=== PATIENT | male | born 1950 | race Caucasian/White ===

== ENCOUNTER 2020-12-15 12:07 | Emergency (ER) | payer MEDICARE, SELFPAY ==
[2020-12-15 12:09] VITALS: BP 162/102; PULSE 68; RESP 16; TEMP 35.9; O2SAT 96; BMI 38.3
--- NOTE | 2020-12-15 12:33 | CT_ITS ---
STUDY: CT BRAIN WITHOUT CONTRAST REASON FOR EXAM: Male, 70 years old. Fell and hit back of head RADIATION DOSAGE (If Supplied By Facility): CTDIvol = ( 44.99 ) mGy, DLP = ( 846.73 ) mGycm TECHNIQUE: Transaxial CT imaging of the brain was performed without administration of intravenous contrast material. Individualized dose optimization techniques were used for this CT. COMPARISON: No relevant priors. FINDINGS: Normal soft tissue structures. Normal calvarium. There is mild cerebral atrophy with widening of the extra-axial spaces and ventricular dilatation. Normal white matter tracts of the cerebral hemispheres. Normal basal ganglia and thalami. Normal brainstem. Normal cerebellum. There is no intracranial hemorrhage. There are no findings of an acute ischemic infarction. Mucosal thickening along the inferior aspects of both maxillary sinuses. CT/Brain/Head without Contrast IMPRESSION: Chronic involutional changes of the brain. Electronically Signed: Kavon Stearns MD at 13:23 EST , Service support ,
--- NOTE | 2020-12-15 12:34 | ED.DCSUM_ITS ---
- ER Visit Summary Date of Service: 12/15/20 Chief Complaint: Fell on [employer] complaining of mid upper back pain History of Present Illness: The patient is a 70 M Struve hypertension and gout. On no blood thinners. Patient is visiting family he is from [place] they live in this area. He said he slipped on an [employer] driveway fell back hit the back of his head. He denies any LOC, dizziness or headache. He denies any nausea or vomiting. He is complaining of mid upper back pain. Denies any chest or abdominal pain. He said prior to the fall he felt fine. Physical Examination: Older male no acute distress vital signs stable afebrile pulse ox 96% on room air no signs of hypoxia. HEENT exam pupils round reactive light extra motions are intact. No facial trauma. Posterior scalp mid area has got a very superficial 1 cm laceration which does not need to be repaired. T here is no bleeding. There is no hematoma. Is nontender. C-spine nontender. Trachea midline. Normal range of motion. Lungs clear to auscultation bilaterally. Heart regular rhythm rate about 70 no murmur. Chest wall nontender. Abdomen soft nontender normal bowel sounds no peritoneal signs. Pelvic girdle intact. Patient moving all 4 extremities. Neurovascularly intact. No deformities. Equal symmetrical 5-5 galvanometer assembler strength. Dorsi plantarflexion intact. Normal range of motion. Spine cervical, thoracic and lumbar spine are nontender. He complains of mid thoracic pain but there is no reproducible tenderness there is no bruising or signs of trauma to his back. Neurologically is awake and alert. No focal motor or sensory deficits. GCS of 15. He is answering questions and following commands. He is acting normally. Test Results: Thoracic spine AP and lateral films read both by myself and the radiologist shows chronic degenerative changes but no acute fracture. CT brain done without contrast read by the radiologist reviewed by me shows no acute abnormality. No intracranial bleed. No skull fracture. Portable 1 view chest x-ray shows no obvious rib fractures or pneumothorax interpreted by me and read by the radiologist. Repeat exam patient is doing well at 2:16 PM. He did want something else for pain she will be given subcu injection of morphine and p.o. Zofran. Again he does not have reproducible tenderness on his back. His ex- and he are still friends and I spoke to her on the phone she lives in [place]. His daughter will come and pick him up. Patient is doing well he is neurologically intact. He is awake and alert. He is showing no signs currently of any significant concussion. Emergency Department Course and Treatment: Older male fall with head injury and upper back pain. Benign exam. Normal neurologic exam. Due to his age and reported impact I would not obtain a CAT scan of his brain and a thoracic spine x-ray. He will be given Tylenol for pain. Treatment Plan: Motrin and limited [place] for pain. 10 no refill. Follow-up with local physician if not improving or return if worse. Head injury instructions. Disposition: Discharge Impression: Acute fall on [place] Acute closed head injury Upper back pain This note was generated with [employer] dictation software. It may contain incorrect words, spelling, and punctuation that were not noted in review of the chart prior to signing
--- NOTE | 2020-12-15 12:45 | RAD_ITS ---
STUDY: X-RAY - THORACIC SPINE REASON FOR EXAM: Male, 70 years old. Fall and upper to mid back pain TECHNIQUE: 2 view(s) of the thoracic spine were obtained. COMPARISON: None. FINDINGS: There is an increase in the normal thoracic kyphosis. There is no substantial scoliosis. There is demineralization of the thoracic spine with endplate spondylosis. There is multilevel disc space narrowing of the thoracic spine. The soft tissue structures are unremarkable. RAD/Thoracic Spine 2 Views IMPRESSION: Increased thoracic kyphosis. Multilevel disc space narrowing and spondylosis. Electronically Signed: Kavon Stearns MD at 13:18 EST , Service support ,
[2020-12-15] MEDS: Acetaminophen 500 MG Tablet 1000 MG PO (13:13)
[2020-12-15 14:33] VITALS: BP 169/83; PULSE 59; RESP 14; O2SAT 98
--- NOTE | 2020-12-15 14:37 | ED.DEP ---
ED Disposition - Plan for ED Patient: Disposition: Home or Assisted Living Instructions: ED Back Sprain/Strain, ED Head Injury (Adult) Prescriptions: Hydrocodone Bitart/Apap 5-325 [Shawnee 5MG-325MG] 1 - 2 tab PO Q6H PRN PRN 3 Days #10 tab PRN Reason: Pain Prescription Printed Referrals: MEHDI JORDAN [Other] - As Needed Max Fajardo MD [STAFF PHYSICIAN] - 3-5 Days if not improving Additional Instructions: Limited [place]nee which is a pain medication as needed for your back pain. Also may use limited Motrin. Return if severe headache, confused or intractable vomiting. Your CAT scan your brain and the chest x-ray and back x-rays were unremarkable. You have chronic arthritis in your back but there is no acute broken bones that was seen. Follow-up with a local physician if not improving. Ice to your scalp and ice and heat to your upper back.
[2020-12-15] MEDS: Ondansetron ODT 4 MG Tablet PO (14:42)
[2020-12-15] MEDS: morphine 8 MG/ML Syringe SC (14:42)
--- NOTE | 2020-12-15 14:55 | RAD_ITS ---
STUDY: X-RAY CHEST REASON FOR EXAM: Male, 70 years old. Fall and pain TECHNIQUE: Single AP portable view of the chest. COMPARISON: None. FINDINGS: The lungs are clear and expanded. Stable scattered bilateral calcified granulomas. There is no demonstrated pleural abnormality. There is borderline cardiomegaly. Normal mediastinum and sana. Normal visualized pulmonary arteries. Normal visualized aortic arch and descending thoracic aorta. There are diffuse degenerative changes of the visualized thoracic spine. Normal visualized ribs, clavicles, and shoulders. There is no demonstrated abnormality of the visualized soft tissue structures of the upper abdomen. RAD/Chest 1 View (Portable) IMPRESSION: No acute abnormality is seen. Electronically Signed: Kavon Stearns MD at 15:13 EST , Service support ,
[2020-12-15 15:22] VITALS: BP 135/105; PULSE 56; RESP 14; O2SAT 98
== END 2020-12-15 15:23 | disposition home or self-care (01) ==
PROVIDERS: Emergency Provider Emergency Medicine
DX: M54.6 Pain in thoracic spine (principal); S01.01XA Laceration without foreign body of scalp, initial encounter; I10 Essential (primary) hypertension; Z79.899 Other long term (current) drug therapy; W00.0XXA Fall on same level due to ice and snow, initial encounter; Y93.01 Activity, walking, marching and hiking; Y92.008 Other place in unspecified non-institutional (private) residence as the place of occurrence of the external cause; Y99.8 Other external cause status
CPT/HCPCS: 70450; 71045; 72070; 96372; 99283

== ENCOUNTER → 2022-08-26 | Outpatient (CLI) | payer MEDICARE, SELFPAY ==
--- NOTE | 2022-08-26 17:01 | CT_ITS ---
INDICATION: Osteoarthritis, preoperative planning EXAMINATION: CT BONE - CT Lower Extremity W/O Contrast Injection TECHNIQUE: Helically acquired images were obtained of the left hip, left knee, left ankle. 2-D reformats were performed by the technologist. A radiation dose optimization technique was used for this scan. IV Contrast dosage and agent: None. COMPARISON: None. FINDINGS: SOFT TISSUES: Left knee joint effusion.. No radiopaque foreign body. BONES/JOINTS: No acute fracture of the left hip. Left hip joint space well maintained. No destructive bony lesion. 7 mm osteochondral fracture medial tibial plateau with bone on bone contact with the medial femoral condyle, extensive subchondral sclerosis. Small bone fragments in the intracondylar notch. Small posterior patellar osteophytes. No acute fractures of the ankle. Degenerative changes with subchondral geodes at the anterior tibia and anterior talus. 9 space is anatomically maintained. Small osseous fragments adjacent to the medial malleolus, likely from prior trauma. No ankle joint effusion. CT/Extremity Lower without Contra IMPRESSION: Unremarkable left hip. Moderately severe degenerative changes of the left knee with 7 mm osteochondral fracture at the medial tibial plateau. Degenerative changes of the ankle with possible posttraumatic changes at the medial malleolus.. Electronically Signed: Cecil Stock MD at 21:58 EDT ,
== END | disposition home or self-care (01) ==
LOC: CT 16:59
PROVIDERS: Visit Provider Orthopaedic Surgery
DX: M17.12 Unilateral primary osteoarthritis, left knee (principal)
CPT/HCPCS: 73700

== ENCOUNTER → 2022-10-12 | Outpatient (CLI) | payer MEDICARE, SELFPAY ==
[2022-10-12 18:04] LABS: Absolute Lymphocyte Count 2.44 X10^3/uL (0.83-4.51); Absolute Neutrophil Count 7.7 X10^3/uL (2.0-7.7); Basophil# 0.05 X10^3/uL; Basophil% 0.4 % (0-1); Eosinophils% 1.8 % (0-5); Hematocrit 46.7 % (40-54); Hemoglobin 15.5 g/dL (13.0-16.5); Lymphocyte # 2.44 X10^3/ul (0.83-4.51); Lymphocyte % 21.7 % (19-41); Mean Corp Hgb Conc 33.2 g/dL (32-36); Mean Corpuscular Hgb 30.5 pg (27.0-32.0); Mean Corpuscular Volume 91.9 fL (80-94); Monocyte# 0.81 X10^3/uL; Monocyte% 7.2 % (0-10); NRBC Flagged by Analyzer 0 % (0-5); Neutrophil % 68.5 % (47-70); Platelet Count 342 K/mm3 (150-450); RBC Distribution Width CV 13.8 % (11.6-14.6); RBC Distribution Width SD 46.6 fl (35.1-43.9); Red Blood Count 5.08 M/mm3 (4.6-6.2); White Blood Count 11.2 K/mm3 (4.4-11.0)
[2022-10-12 19:03] LABS: ALB/GLOB Ratio 1.3 RATIO (0.9-2.4); AST(SGOT) 17 U/L (15-37); Alanine Aminotransfer ALT/SGPT 29 U/L (16-61); Albumin, Serum 3.8 g/dL (3.2-5.0); Alkaline Phosphatase 73 U/L (45-117); Anion Gap 8 (5-15); BUN 14 mg/dL (7-18); BUN/Creat Ratio 13.7 RATIO (10-20); Calcium,Total 8.7 mg/dL (8.5-10.1); Chloride 109 mmol/L (98-107); Cholesterol 184 mg/dL (200); Creatinine, Serum 1.02 mg/dL (0.70-1.30); EST Glomerular Filtration Rate 76 mL/min (>60); Est Glom Filt Rate - Afr Amer 92 mL/min (>60); Globulin 2.9 g/dL (2.2-4.2); Glucose 78 mg/dL (74-106); High Density Lipoprotein 48 mg/dL; Potassium 4.4 mmol/L (3.5-5.1); Protein, Total 6.7 g/dL (6.4-8.2); Sodium Level 141 mmol/L (136-145); Thyroid Stim Hormone (TSH) 1.43 uIU/mL (0.358-3.74); Triglycerides 128 mg/dL; Very Low Density Lipoprotein 26 mg/dL (5-40)
== END | disposition home or self-care (01) ==
LOC: MFPLAB 14:56
PROVIDERS: PCP Family Medicine; Referring Provider Family Medicine; Visit Provider Family Medicine
DX: I10 Essential (primary) hypertension (principal)
CPT/HCPCS: 36415; 80053; 80061; 84443; 85025

== ENCOUNTER 2022-11-01 07:54 | Observation (INO) | payer MEDICARE, SELFPAY ==
[2022-10-20 17:12] LABS: Magnesium 2.3 mg/dL (1.6-2.6)
[2022-10-20 17:46] LABS: Hemoglobin A1c 5.5 % (3.8-5.6)
[2022-10-31] VITALS (13 sets, daily range): BP systolic 101–151; BP diastolic 59–81; PULSE 47–60; RESP 7–27; TEMP 35.5–36.6; O2SAT 99–100; BMI 32.5
--- NOTE | 2022-10-31 | KNEE_PTH ---
PATIENT: SIDNEY POLLARD LOC: MS3 U#:[id number] AGE/SX: 72/M ROOM: NC317 RE11/01/[address]: Dr. Mynor Kirkpatrick MD : 1950 BED: 1 DIS: 11/03/2022 SPEC #: [id number] RECD: 10/31/22 16:28 STATUS: JUAN A REQ #: [id number] LEANN: 10/31/22 00:[address]: Mynor Kirkpatrick DEPT: SURGICAL PATHOLOGY RECD BY: David Vazquez ENTERED: 11/01/22 09:09 SP TYPE: TOTAL KNEE OTHR DR: MD Dr. Michael Abreu MD Dr. Paige Pierce, MD Tissues: Knee, NOS Procedures: Decalcification bone/plaque Surgery Specimen Level IV HEADER OPERATION: ERAS, total knee replacement PRE-OP DIAGNOSIS: Unilateral posttraumatic osteoarthritis left knee TISSUE SUBMITTED: Bone and tissue left knee MICROSCOPIC DIAGNOSIS Bone and soft tissue, left knee, total knee replacement/resection: Pieces of bone with degenerative osteoarthritic changes. Fibroadipose tissue, fibroconnective tissue and reactive synovial tissue. EMANUEL:julio c 11/04/2022 MICROSCOPIC DESCRIPTION Slides are reviewed. GROSS DESCRIPTION Received is one container designated bone and soft tissue left knee. The specimen consists of multiple fragments of wynn-yellow bone measuring in aggregate 10 x 10 x 4 cm. Also in the specimen container are multiple fragments of yellow-white soft tissue measuring in aggregate 6 x 7 x 2.5 cm. A number of bony fragments contain articular surfaces consistent with tibial plateau and femoral condyle and displaying prominent osteophyte formation, eburnation, and bone erosion. Chemical Equipment Repairer sections are submitted in three cassettes as follows: 1 - soft tissue, 2 & 3 - bone after decalcification. / EMANUEL:julio c 11/01/2022 TC: CPT: 51211, 24380
[2022-10-31] MEDS: Acetaminophen 500 MG Tablet 1000 MG PO ×2 (11:30→21:33)
[2022-10-31] MEDS: Magnesium 1 GM over 15 mins IV (11:31)
[2022-10-31] MEDS: Gabapentin 600 MG Tablet PO (11:31)
[2022-10-31] MEDS: Lactated Ringers 1,000 ML 15 ML IV (11:35)
[2022-10-31 12:00] LABS: Bedside Glucose 107 mg/dL (74-106)
[2022-10-31] MEDS: Cefazolin 2 GM in 0.9% Normal Saline 100 ML IV (12:47)
--- NOTE | 2022-10-31 13:11 | CHAPLAIN ---
Type of Pastoral Visit _x__ Initial Visit ___ Follow-up Visit ___ On-call Visit ___ General Patient Visit ___ Spiritual Assessment ___ Family Conference ___ Bereavement ___ Rapid Response ___ Code Blue ___ Other (describe below) Pastoral Care Referral From _x__ Patient ___ Family ___ Nurse ___ Physician ___ Curbing Stonecutter ___ Ab Initio Etl Developer ___ Other (describe below) Sacrament/Intervention _x__ Active listening ___ Anointing ___ Gnosticist ___ Bereavement ___ Communion ___ Kimberlyn exploration ___ ___ Life review _x__ Prayer ___ Reconciliation ___ Sacrament of Sick _x__ Supportive presence ___ Wedding ___ Other (describe below) Pastoral Comments patient had left a message for pre-surgery support and prayer; met with patient and daughter prior to surgery; pt admits to fear about surgery; pt has not been ill for most of his life; spent time to listen, be present, offer care, and prayer; offer of support to daughter as well
[2022-10-31] MEDS: TXA 1000mg in NS100 100ml (IVPB at Incision) 660 MG IV (13:12)
--- NOTE | 2022-10-31 14:33 | OP.PCM_ITS ---
Problems Associated Problem List Diagnoses (1) Post-traumatic osteoarthritis of left knee: Operative Report Date of Procedure: 10/31/22 Preoperative and post op diagnosis: Left knee severe post traumatic arthritis Title of procedure : Left total knee replacement, press fit, PS Kelly triathlon 1 Surgeon: Mynor Kirkpatrick MD General Warehouse Associate: Mattie Alvarez PA-C Anesthesia: Spinal, adductor canal nerve block Anesthesiologist:Dr. Garcia / SHALINI Special medications: Ancef 2 gm tranexamic acid Indications for surgery: Patient is a [72 ]-year-old [male] with a history of knee arthritis, posttraumatic, history PCL insufficiency appropriately treated and failed conservative measures and wished to proceed with total knee replacement. Patient was cleared for surgery by the medical doctor and has been evaluated by the anesthesia staff Findings: Intraoperative findings showed severe arthritis of the knee and PCL insufficiency.. Patient underwent knee replacement using Kim triathlon press-fit total knee components. Size [5] femur, size [6] tibia, size [6 -13 PS] X3 tibial polyethylene insert, knee was nicely balanced. Patella tracked well. Patient underwent standard wound closure in layers. Vicryl and strata fix sutures utilized. real estate assistant, physician stores assistant, was utilized throughout the entire procedure. They were vital in helping with patient positioning, holding of retractors, exposing the tissues adequately for safe completion of the procedure including cutting of the bone, helping flat spring assembler appropriate alignment and sizing of the components, implantation of the components, as well as wound closure, bandage application, and safe patient transfer. Without acute care certified nursing assistant, physician stores assistant, surgical time would have been significantly increased, and surgical outcome could have been less optimal. Press-fit knee replacement macro preoperative diagnosis: Left knee severe primary osteoarthritis Description of procedure: The patient was taken to the OR, transferred to the OR table. They were given a spinal anesthetic. Ancef was given IV preoperatively. Tranexamic acid was given IV preoperatively. Well-padded tourniquet was applied to the upper thigh of the operative leg. Nonoperative leg had a PRISCILA hose and SCD on throughout. Operative limb was prepped padded and draped in usual orthopedic sterile fashion for the procedure. We began by injecting the pain relieving solution in the anterior superior aspect of the knee region. The limb was exsanguinated, and the tourniquet was applied to 300 mmHg. Made a midline incision through skin, subcutaneous tissue, bringing down us on the extensor mechanism. Medial parapatellar arthrotomy was carried out. Straw-colored joint fluid was evacuated. We raised a sleeve of tissue off the upper medial tibia. Resected some of the infrapatellar fat pad. We remove degenerative medial and lateral meniscus. Removed bone spurs from about the joint. We removed tissue off the anterior aspect of the distal femur. Patella was translated laterally and/or everted as needed throughout the procedure. ACL was resected. PCL was chronically deficient. Collateral ligaments were preserved. Physician placed the retractors and stores assistant held retractors protecting above ligaments throughout the procedure. Cartilage removed off the distal femur and upper tibia consistent with the cutting guides, premade custom. We resected off of the distal femur. Next cutting block was applied to the front of the femur. Appropriate predetermined degree of external rotation . We sized off that block and decided on the appropriate size femur. 4-in-1 cutting block was applied to the distal femur and held in place with 4 pins. General Warehouse Associate again held retractors to protect the soft tissues while surgeon performed anterior, posterior, and chamfer cuts. Bony fragments were removed. PCL retractor was placed and collateral ligament protectors placed by the surgeon, held by the assistance. Tibial premade cutting guide with external alignment guide was utilized under standard technique going down the shaft of the tibia, to the base of the second metatarsal. Appropriate posterior slope was built in. General Warehouse Associate help flat spring assembler alignment. Cutting block was held in place with 3 pins. Again checked the external alignment. Tibial cut carried out with a saw while the stores assistant held retractors protecting the soft tissues about the anterior, medial, lateral, and posterior knee. Bone fragment removed. We then sized off the upper tibia with the help of the stores assistant. We then checked flexion extension gaps finding them to be adequate and equal. Next the distal femoral trial was applied. Tibial tray was allowed to freefloat with a 13 mm insert. Knee was flexed and extended an external alignment guide is utilized. Due to PCL insufficiency, distal femoral intercondylar resection carried out. Bony fragment removed. Tibial trial was pinned in place. Drill holes were placed into the distal femoral trial and it was removed. Punch was used on the upper tibial component and that was removed. The sclerotic bone was softened with a sharp pin. Bone spurs removed from the posterior medial and posterior lateral aspect of the femur while the stores assistant lifted up on the distal femur and exposed each compartment. Patella was everted and visualized. No full-thickness cartilage loss. Some bony spurs were resected. Bleeding was controlled at the back of the knee with the bovey. Posterior knee soft tissues were carefully injected with pain relieving solution. Knee was thoroughly irrigated by the stores assistant while surgeon fashioned a bone plug that was placed in the femoral canal hole. The bony surfaces cleaned and dried. Tibia, femur, press-fit into position. General Warehouse Associate held retractors exposing the bony surfaces of the tibia and femur wh ich were hammered in position. A trial insert applied to the tibia. The final PS insert was placed on the tibial tray seated down fully. We thoroughly irrigated and debrided the knee. Bleeding controlled with the Bovie. Knee was again thoroughly irrigated. Patella noted to track nicely. We repaired the arthrotomy with a combination of #1 Vicryl and #2 strata fix. We did a mid layer of 1 Vicryl and #1 strata fix running. We then did inverted 2-0 vicryl . We then applied Steri-Strips over skin prep. Mepilex dressing applied. PRISCILA hose and SCDs applied. Patient was awoken from their anesthetic, transferred back to their own bed and recovery room in satisfactory condition. Second dose of IV Tranexamic acid was given while closing wound. Patient was admitted, appropriate IV antibiotic to be utilized as well as medication for DVT prevention. Hopeful discharge in 1-2 days. Hospitalist service and Physical therapy will be consulted. This note was generated with [employer] dictation software. It may contain incorrect words, spelling, and punctuation that were not noted in checking the note before signing. Postoperative diagnosis:
[2022-10-31] MEDS: TXA 1000mg in NS100 100ml (IVPB at Closure) 660 MG IV (14:39)
[2022-10-31] MEDS: Lactated Ringers 1,000 ML 999 ML IV (15:30)
--- NOTE | 2022-10-31 15:40 | RAD_ITS ---
INDICATION: post op -- AP and Lateral xray of operative knee in PACU EXAMINATION/TECHNIQUE: X-RAY - LEFT XR Knee 1 or 2 Views 2 VIEWS COMPARISON: None. FINDINGS: 2 views left knee show postoperative appearance of the knee with anatomic alignment of the knee prosthesis. Overlying skin nick anteriorly. Subcutaneous emphysema in the operative site and in the joint space. RAD/Knee 1 or 2 Views IMPRESSION: Status post left knee replacement. Electronically Signed: Cecil Stock MD at 16:09 EST ,
--- NOTE | 2022-10-31 16:44 | PCM.PN.HOSP ---
Subjective Subjective Patient with ongoing significant left knee pain secondary to severe posttraumatic arthritis following with Dr. Mynor Kirkpatrick. Patient presented for planned left total knee replacement. Currently status post surgical intervention with additionally block with sensation improving although left lower extremity still slightly decreased sensation but able to move both lower extremities without issue and denies any current pain. Discussed patient's history and specifically requested if he is still drinking alcohol and he currently states that he has been clean but cannot give an exact timeline. He does go into mild diatribe about the different levels of alcoholism and is not sure exactly which one he may be. He does report that he has had some mild memory issues recently has been started on medication for depression. Patient denies fevers, chills, nausea, emesis, abdominal pain, chest pain or dyspnea. Objective Data Objective Data Vital Signs: Vital Signs Temp Pulse Resp BP Pulse Ox O2 Del Method O2 Flow Rate 96 F L 55 L 21 H 137/78 H 100 Nasal Cannula 4 10/31/22 16:30 10/31/22 16:30 10/31/22 16:30 10/31/22 16:30 10/31/22 16:30 10/31/22 16:30 10/31/22 16:30 Oxygen Flow Rate (L/min) 4 Oxygen Delivery Method Nasal Cannula Weight: 233 lb 11.04 oz Body Mass Index (BMI) 32.5 Intake & Output: Intake and Output for Last 24 Hours 10/29/22 10/30/22 10/31/22 23:59 23:59 23:59 Intake Total 1432 / 1432 Balance 1432 / 1432 Lab / Micro Data Labs: Laboratory Results - last 24 hr 10/31/22 11:05: POC Glucose 107 H Micro: Microbiology 10/20/22 16:19 Swab (Method) Nasal Screen MRSA/MSSA - Final Radiography Diagnostic Testing: Radiology Impression Knee X-Ray 10/31/22 15:40 IMPRESSION: Status post left knee replacement. Electronically Signed: Cecil Stock MD at 16:09 EST , Physical Exam Narrative Physical Examination: General: Awake, alert, oriented x 3 including to self, place and recent events, remains cooperative, laying in the PACU bed, no acute distress, denies pain. Skin: Normal color, normal turgor, no icterus, no cyanosis except for recent left total knee replacement with dressings in place, no drainage. HEENT: AT/NC, EOMI, PERRLA, mildly dry MM, no carotid bruits or JVD noted. Lungs: Diminished, greater bases, appropriate effort, no rales, ronchi or wheezing. Heart: Regular rate and rhythm; no gallop, rub audible. Abdomen: Soft, obese, NTTP, ND, distant mildly decreased BS, difficult assess HSM given habitus. Extremities: No cyanosis, clubbing, or edema, sensation returning, still mildly decreased sensation left lower extremity but moving both, peripheral pulses intact. Neurological: Patient awake, alert, oriented as noted, cognitive function appears intact although unclear exact baseline with patient reporting memory issues possibly related to depression; pupils equally reactive to light and accommodation, cranial nerves II-XII grossly normal, moving all 4 extremities, sensation mildly decreased on the left lower extremity but improving, strength moderately to severely decreased given recent OR. Psychiatric: Affect appears very cheerful, normal, no acute evidence of depressive or anxiety feelings. Assessment & Plan Assessment/Plan (1) Post-traumatic osteoarthritis of left knee: PLAN: Plan The patient is a 72 y/o M w/ PMHx: Hx EtOH abuse, Hx Polysubstance abuse (crack/cocaine use reported in chart), Anxiety and Depression, Chart reported neurocognitive disorder (possibly EtOH related, but unclear), HTN, Chronic back pain, OA who presents to the [facility] on 10/31/22 with history of going low knee osteoarthritic pain despite interventions for planned left total knee replacement. #1. Severe Osteoarthritis, Left Knee: Failed conservative therapies and treatments, admitted per Dr. Kirkpatrick for planned L TKR, post-operative pain management, bowel regimen, DVT Prophylaxis, PT/OT/CM per Orthopedic surgery discretion. #2. History of alcohol abuse: From discussions some concern about possible ongoing usage although patient reports that he is not been drinking and has been sober but cannot be exact about the years and specifically goes into mild diatribe about the level of alcoholism and that he never really was obsessed with alcohol. If any concerns arise may initiate CIWA and add mag and Phos levels. #3. History of polysubstance abuse: Per chart patient is a former substance abuse user which she did admit to following discussions, previously reported crack and cocaine in the chart, reports being clean. #4. Chart reported neurocognitive disorder: Possibly related with his alcohol abuse history, reports he has been having memory issues but his specific etiology is his underlying depression which she reports he is being treated for. Encouraged continued follow-up for further assessment as needed pending response to treatment of his depression. #5. Hypertension: Continue home regimen including atenolol, PRN hydralazine. #6. Anxiety and depression: We will continue low-dose sertraline regimen, encourage continued follow-up and certainly has room to move on this medication. We will continue also patient as needed hydroxyzine regimen. #7. DVT prophylaxis: SCDs, chemoprophylaxis per surgery discretion especially given recent MAR. Admission Evaluation Time spent evaluating chart, patient history, patient evaluation, care planning and discussion with specialists: 50 minutes. Charges/Coding Visit Charges Inpatient E&M: 61651 Subs Hosp L3
[2022-10-31] MEDS: Lactated Ringers 1,000 ML 125 ML IV (18:03)
[2022-10-31] MEDS: Cefazolin 1 GM/50 ML BAG IV (21:31)
[2022-10-31] MEDS: Senna/Docusate Sodium 1 Tablet 2 TABLET PO (21:34)
[2022-10-31] MEDS: hydrOXYzine 10 MG Tablet PO (21:42)
[2022-10-31] MEDS: Zolpidem Tartrate 5 MG Tablet PO (22:44)
[2022-11-01] MEDS: Lactated Ringers 1,000 ML 125 ML IV (03:55)
[2022-11-01 03:57] VITALS: BP 139/78; PULSE 60; RESP 18; TEMP 36.6; O2SAT 100
[2022-11-01] MEDS: Cefazolin 1 GM/50 ML BAG IV (04:14)
[2022-11-01] MEDS: oxyCODONE 5 MG Tablet PO ×3 (04:14→21:18)
[2022-11-01] MEDS: Acetaminophen 500 MG Tablet 1000 MG PO ×3 (05:57→21:19)
[2022-11-01 07:21] LABS: Hematocrit 41.9 % (40-54); Hemoglobin 13.7 g/dL (13.0-16.5); Mean Corp Hgb Conc 32.7 g/dL (32-36); Mean Corpuscular Hgb 30.6 pg (27.0-32.0); Mean Corpuscular Volume 93.7 fL (80-94); Mean Platelet Vol. 8.7 fl (6.2-12.0); Platelet Count 245 K/mm3 (150-450); RBC Distribution Width CV 13.1 % (11.6-14.6); RBC Distribution Width SD 45.1 fl (35.1-43.9); Red Blood Count 4.47 M/mm3 (4.6-6.2); White Blood Count 12.3 K/mm3 (4.4-11.0)
--- NOTE | 2022-11-01 07:40 | PN.ORTHO_ITS ---
Subjective Subjective Patient sitting at bedside with aide at his side. Patient states his knee has been very painful, and have very difficult time with any weightbearing ambulation. Patient is very concerned that he will not be able to go home as he does live by himself and will not be able to ambulate through his home. Patient denies chest pain, shortness of breath, calf pain, nausea vomiting. Patient has no other complaints at this time. Objective Data Objective Data Vital Signs: Vital Signs Temp Pulse Resp BP Pulse Ox O2 Del Method O2 Flow Rate 97.9 F 60 18 139/78 H 100 Nasal Cannula 2 11/01/22 03:57 11/01/22 03:57 11/01/22 03:57 11/01/22 03:57 11/01/22 03:57 11/01/22 03:57 11/01/22 03:57 Oxygen Flow Rate (L/min) 2 Oxygen Delivery Method Nasal Cannula Weight: 106 kg Body Mass Index (BMI) 32.5 Intake & Output: Intake and Output for Last 24 Hours 10/30/22 10/31/22 11/01/22 23:59 23:59 23:59 Intake Total 1579.5 / 2179.5 2150 / 2150 Output Total 600 / 600 Balance 1579.5 / 1979.5 1550 / 1550 Lab / Micro Data Result Diagrams: 11/01/22 06:35 11/01/22 06:35 Labs: Laboratory Results - last 24 hr 10/31/22 11:05: POC Glucose 107 H 11/01/22 06:35: WBC 12.3 H, RBC 4.47 L, Hgb 13.7, Hct 41.9, MCV 93.7, MCH 30.6, MCHC 32.7, RDW Std Deviation 45.1 H, RDW Coeff of Sarah 13.1, Plt Count 245, MPV 8.7 Micro: Microbiology 10/20/22 16:19 Swab (Method) Nasal Screen MRSA/MSSA - Final Radiography Diagnostic Testing: Radiology Impression Knee X-Ray 10/31/22 15:40 IMPRESSION: Status post left knee replacement. Electronically Signed: Cecil Stock MD at 16:09 EST , Physical Exam Narrative Exam, I found patient sitting comfortably in the recliner at bedside. Patient's left leg elevated. The dressing was clean dry intact. Patient had no calf tenderness. No pain with plantar flexion dorsiflexion of the foot and ankle. Patient with this treatment painful with any motion of the knee. He was lacking approximately 10 degrees full extension. Flexion to approximately 65 degrees with severe pain. Neurovascular is otherwise intact. Patient was in no respiratory distress, speaking in full sentences. Full range of motion of the upper extremities without limitations. Const alert and oriented x3 General Appearance: cooperative HEENT normocephalic Eyes PERRL Resp normal respiratory effort Effort and Inspection: able to speak in complete sentences Extremity normal capillary refill Skin no rashes or lesions noted Neuro CN's II-XII intact bilaterally Psych mental status grossly normal and affect normal Assessment & Plan Assessment/Plan (1) Status post total left knee replacement not using cement: PLAN: 1. Continue all pain medications as prescribed 2. Continue aspirin 81 mg 1 p.o. every 12 hours x30 days for postop DVT prophylaxis 3. Encourage incentive spirometry 4. Continue ice to left knee 5. Continue physical therapy weight-bear as tolerated with walker 6. Check with insurance for possible placement to [facility] 4th floor rehab or an F
[2022-11-01 07:45] LABS: Anion Gap 6 (5-15); BUN 15 mg/dL (7-18); BUN/Creat Ratio 15.6 RATIO (10-20); Calcium,Total 8.2 mg/dL (8.5-10.1); Chloride 107 mmol/L (98-107); Creatinine, Serum 0.96 mg/dL (0.70-1.30); EST Glomerular Filtration Rate 82 mL/min (>60); Est Glom Filt Rate - Afr Amer 99 mL/min (>60); Estimated Creatinine Clearance 71.82 ml/min; Glucose 98 mg/dL (74-106); Sodium Level 139 mmol/L (136-145)
[2022-11-01 08:10] VITALS: O2SAT 98
[2022-11-01 08:20] VITALS: BP 109/61; PULSE 65; RESP 18; TEMP 37; O2SAT 98
[2022-11-01] MEDS: Aspirin 81 MG TAB.CHEW PO ×2 (08:24→17:09)
[2022-11-01] MEDS: Senna/Docusate Sodium 1 Tablet 2 TABLET PO (08:24)
[2022-11-01] MEDS: Sertraline 50 MG Tablet PO (08:25)
[2022-11-01] MEDS: Atenolol 25 MG Tablet PO (08:25)
--- NOTE | 2022-11-01 10:03 | CASEMGMT ---
Social Work SW in to meet with pt following update from that pt requesting placement at [facility] Rehab Unit. SW introduced self and role at the hospital. Pt agreeable to discussing discharge planning. A list of SNF/RU providers including quality and resource use data and consistent with the patient?s preferred geographic region, medical needs, and insurance network from the [employer] Guide was offered. Pt declined the list, stated [facility] is preferred provider. Pt discussed anxiety regarding being able to care for self and plans pt previously attempted to make for care after surgery and how they fell through. SW spoke with pt regarding mental health counseling and pt informed has seen a counselor recently and does not need resources. Pt shared on meds for anxiety. Pt continued to express anxiety, SW encouraged pt to utilize coping skills learned in counseling. Pt agreeable. SUJATHA sent referral for pt to Belen Mast at [facility] Rehab Unit. Belen received and will review with Dr. Hackett. PLAN: [facility], pending acceptance and precert? LUIS Mahmood?
--- NOTE | 2022-11-01 11:53 | CHAPLAIN ---
Type of Pastoral Visit ___ Initial Visit _x__ Follow-up Visit ___ On-call Visit ___ General Patient Visit ___ Spiritual Assessment ___ Family Conference ___ Bereavement ___ Rapid Response ___ Code Blue ___ Other (describe below) Pastoral Care Referral From _x__ Patient ___ Family ___ Nurse ___ Physician ___ Uptwister Tender ___ Chemical Operations Specialist ___ Other (describe below) Sacrament/Intervention _x__ Active listening ___ Anointing ___ Oriental Orthodox ___ Bereavement ___ Communion ___ Kimberlyn exploration ___ ___ Life review _x__ Prayer ___ Reconciliation ___ Sacrament of Sick _x__ Supportive presence ___ Wedding ___ Other (describe below) Pastoral Comments follow up visit as requested by the patient; pt had surgery and today states I shouldn't have done this. I'm so anxious. It is numb. I don't know... as he moves around in the bed; questioned patient if any reasons why he makes these statements and feels this way and pt is unable to give any reasons; pt states that he has depression and why did I do this?; pt says that he has done the 12 step program and knows the steps to do; pt plan is to be admitted for in patient rehab; pt thanks mop worker for coming but has difficulty focusing his thoughts; pt said he told family not to come for visit; pt had bag of things to do or read but he said he was not interested in that right now; pt did welcome prayer for his peace and for recovery; pt was expressive of gratitude for visit and prayer; pt would welcome future supportive visits if indeed he does inpatient rehab here
[2022-11-01] MEDS: hydrOXYzine 10 MG Tablet PO (13:25)
[2022-11-01 13:29] VITALS: BP 144/73; PULSE 73; RESP 18; TEMP 37.7; O2SAT 94
--- NOTE | 2022-11-01 14:10 | CASEMGMT ---
Social Work SW received call from pt's Daughter, Arabella. Arabella had questions regarding pt discharge plan. Arabella wanting to provide information regarding not being able to assist pt with therapy/rehab and continuing line of questions. SUJATHA informed that referral had been placed to [facility] and is awaiting review by . SUJATHA offered extensive education on insurance auth and possibilities were pt could be approved or denied. Arabella understand of information provided. SUJATHA reassured Arabella that when determination is made SUJATHA will call with update. PLAN: [facility], pending acceptance and precert LUIS Mahmood
--- NOTE | 2022-11-01 14:25 | PN.HOSP_ITS ---
Subjective Subjective Somewhat anxious today, overall reports pain is very reasonable when he is sitting down but worsened significantly with movement which is to be expected. Denied other complaints today Objective Data Objective Data Vital Signs: Vital Signs Temp Pulse Resp BP Pulse Ox O2 Del Method O2 Flow Rate 99.8 F H 73 18 144/73 H 94 Room Air 2 11/01/22 13:29 11/01/22 13:29 11/01/22 13:29 11/01/22 13:29 11/01/22 13:29 11/01/22 13:29 11/01/22 08:10 Oxygen Flow Rate (L/min) 2 Oxygen Delivery Method Room Air Weight: 106 kg Body Mass Index (BMI) 32.5 Intake & Output: Intake and Output for Last 24 Hours 10/30/22 10/31/22 11/01/22 23:59 23:59 23:59 Intake Total 1579.5 / 2179.5 3150 / 3150 Output Total 600 / 600 Balance 1579.5 / 1979.5 2550 / 2550 Lab / Micro Data Result Diagrams: 11/01/22 06:35 11/01/22 06:35 Labs: Laboratory Results - last 24 hr 11/01/22 06:35: WBC 12.3 H, RBC 4.47 L, Hgb 13.7, Hct 41.9, MCV 93.7, MCH 30.6, MCHC 32.7, RDW Std Deviation 45.1 H, RDW Coeff of Sarah 13.1, Plt Count 245, MPV 8.7 11/01/22 06:35: Sodium 139, Potassium 4.0, Chloride 107, Carbon Dioxide 26.0, A nion Gap 6, BUN 15, Creatinine 0.96, Estim Creat Clear Calc 71.82, Est GFR (MDRD) Af Amer 99, Est GFR (MDRD) Non-Af 82, BUN/Creatinine Ratio 15.6, Glucose 98, Calcium 8.2 L Micro: Microbiology 10/20/22 16:19 Swab (Method) Nasal Screen MRSA/MSSA - Final Radiography Diagnostic Testing: Radiology Impression Knee X-Ray 10/31/22 15:40 IMPRESSION: Status post left knee replacement. Electronically Signed: Cecil Stock MD at 16:09 EST , Physical Exam Const alert Constitutional Narrative: Oriented HEENT normocephalic and head/scalp atraumatic Eyes Eyes Narrative: EOM grossly intact, anicteric Neck supple Resp normal respiratory effort and clear to auscultation bilaterally Cardio regular rate and regular rhythm GI soft to palpation, non-tender and non-distended Extremity Extremity Narrative: No edema appreciated Neuro moves all extremities Neuro Narrative: No overt focal deficits appreciated Psych Psych Narrative: Frequently mumbles, appears somewhat anxious Assessment & Plan Assessment/Plan (1) Status post total left knee replacement not using cement: PLAN: Plan #Status post total left knee replacement Performed 10/31/[address] Kirkpatrick Aspirin 81 mg every 12 for 30 days postop PT/OT assessed Patient like to go to rehab here Awaiting insurance Auth #Anxiety/hx alcohol abuse/hx polysubstance abuse/neurocognitive disorder/anxiety and depression Called earlier but he was increasingly anxious and did not respond to hydroxyzine Given unclear alcohol history Ativan x1 was ordered Possible benefit though unclear Was found to be retaining 1200 cc of urine which may have been part of his symptoms Will start CIWA every 4 hours without coverage at this time with low threshold to start coverage Also given urinary retention will get UA and will also obtain UDS Continue home sertraline Will schedule melatonin tonight #Urinary retention UA, may need repeat bladder scans if not voiding #Hypertension Continue atenolol #DVT ppx: Aspirin, SCDs Rhonda Castanon MD Charges/Coding Visit Charges Inpatient E&M: 69868 Subs Hosp L2
--- NOTE | 2022-11-01 15:29 | CASEMGMT ---
Addendum entered by Tammy Rose 11/01/22 15:46: SW in to inform pt that Rehab is unable to accept. A list of SNF providers including quality and resource use data and consistent with the patient?s preferred geographic region, medical needs, and insurance network [facility] was offered once again. Pt agreeable to reviewing and stated [facility] TCU would be preference if cannot go to . SW informed there is a possibility of a bed being open tomorrow but no guarantee. Pt staying hopefully can go to TCU. SW attempted to get another choice from pt. Pt stated possibly [facility] but would like to confer with daughter before making that decision. PLAN: TCU, pending acceptance and precert LUIS Mahmood Original Note: Social work SW received message from [facility] at Rehab Unit. Dr. Hackett has not accepted pt at Rehab Unit. Belen shared a bed will likely be open at [facility] tomorrow. SW asked [facility] to hold bed for this pt. Belen agreeable. Belen will know if the bed will open tomorrow morning. In meantime SW will get alternative choices for community SNF placement from pt. PLAN: TCU vs. community SNF LUIS Mahmood
[2022-11-01 17:06] VITALS: BP 152/79; PULSE 74; RESP 18; TEMP 37.9; O2SAT 97
[2022-11-01] MEDS: LORazepam 0.5 MG Tablet PO (17:09)
[2022-11-01 19:58] VITALS: BP 141/74; PULSE 73; RESP 18; TEMP 37.2; O2SAT 99
--- NOTE | 2022-11-01 20:22 | NURSING ---
Pt would like to have Von Buckley added to his contact list. Pt would like Von to be able to receive updates. This RN talked to Von and he had several concerns that he would like addressed. He would like pt to go to rehab. States he feels that it is not safe for pt to go home with his daughter since the pt's daughter works. Also, if pt needs to be straight cathed again Von is requesting that a 10 belarusian cath be used. Von's phone number is [phone]. This RN will call registration and have the list updated.
[2022-11-01] MEDS: 0.9% NaCl Peripheral Flush Adult/Peds IV (21:17)
[2022-11-01] MEDS: MELATONIN 10 MG TABLET PO (21:17)
[2022-11-02] VITALS (7 sets, daily range): BP systolic 114–138; BP diastolic 56–77; PULSE 62–90; RESP 16–18; TEMP 36.4–37.9; O2SAT 95–99
[2022-11-02] MEDS: oxyCODONE 5 MG Tablet PO ×3 (02:57→19:53)
[2022-11-02 04:02] LABS: Amphetamine Urine VISTA NEGATIVE (<1000 ng/mL); Barbiturate Urine VISTA NEGATIVE (< 200 ng/mL); Benzodiazepine Urine VISTA POSITIVE (< 200 ng/mL); Cocaine Urine VISTA NEGATIVE (< 300 ng/mL); Ecstacy Urine VISTA NEGATIVE (< 500 ng/mL); Methadone Urine VISTA NEGATIVE (< 300 ng/mL); PCP Urine VISTA NEGATIVE (< 25 ng/mL); THC Urine VISTA NEGATIVE (< 50 ng/mL); Vista UDS pH Range 4
[2022-11-02 04:11] LABS: Bacteria 0 SEEN /hpf (None Seen); Mucous, Urine 0 SEEN /hpf (<or=2+); Squamous Epithelial Cells - UA 0 SEEN /hpf (0-5); White Blood Cells 0 SEEN /hpf (0-5)
[2022-11-02 04:12] LABS: Glucose, Dipstick Normal (Normal); Ketone-Dipstick Negative (Negative); Leukocyte Esterase-Dipstick Negative /ul (Negative); Nitrite-Dipstick Negative (Negative); Occult Blood-Urine 10 /ul (Negative); Protein-Dipstick 15 mg/dl (Negative); Specific Gravity, Urine 1.015 (1.002-1.030); Urine Bilirubin Dipstick Negative (Negative); Urine Urobilinogen Normal (Normal)
[2022-11-02 04:26] LABS: Color, Urine Yellow (Yellow); Urine Clarity Clear (Clear)
[2022-11-02 04:27] LABS: Red Blood Cells-Urine 0-5 SEEN /hpf (0-5)
[2022-11-02] MEDS: Acetaminophen 500 MG Tablet 1000 MG PO ×2 (05:10→14:18)
[2022-11-02 06:09] LABS: Hematocrit 40.2 % (40-54); Hemoglobin 13.2 g/dL (13.0-16.5); Mean Corp Hgb Conc 32.8 g/dL (32-36); Mean Corpuscular Hgb 30.3 pg (27.0-32.0); Mean Corpuscular Volume 92.4 fL (80-94); Platelet Count 241 K/mm3 (150-450); Red Blood Count 4.35 M/mm3 (4.6-6.2); White Blood Count 18.1 K/mm3 (4.4-11.0)
[2022-11-02 06:40] LABS: Anion Gap 4 (5-15); BUN 17 mg/dL (7-18); Calcium,Total 8.2 mg/dL (8.5-10.1); Chloride 109 mmol/L (98-107); Creatinine, Serum 0.94 mg/dL (0.70-1.30); EST Glomerular Filtration Rate 83 mL/min (>60); Est Glom Filt Rate - Afr Amer 101 mL/min (>60); Estimated Creatinine Clearance 73.35 ml/min; Glucose 100 mg/dL (74-106); Sodium Level 137 mmol/L (136-145)
--- NOTE | 2022-11-02 07:30 | PN.ORTHO_ITS ---
Subjective Subjective Patient is postop day 2 following a left total knee arthroplasty pain has been well controlled in the left knee. He states physical therapy is difficult. He has been having some urinary retention. He was able to urinate some in the middle of the night but they had to straight cath him. He currently denies chest pain shortness of breath dizziness or calf pain. No adverse events overnight. He is hoping for discharge to residential facility for rehabilitation. He denies a history of DVT or pulmonary embolism. Objective Data Objective Data Inspection of left knee is with clean dry waterproof dressing without active drainage erythema warmth or signs of infection. Negative Piotr bilaterally without signs of DVT. Patient is able to actively plantar and dorsiflex bilateral ankles against resistance. Sensation intact light touch. Pedal pulses present equal bilaterally. Neurovascularly intact. Vital Signs: Vital Signs Temp Pulse Resp BP Pulse Ox O2 Del Method O2 Flow Rate 98.3 F 62 18 114/56 L 95 Room Air 2 11/02/22 02:56 11/02/22 02:56 11/02/22 02:56 11/02/22 02:56 11/02/22 02:56 11/02/22 02:56 11/01/22 08:10 Oxygen Flow Rate (L/min) 2 Oxygen Delivery Method Room Air Weight: 106 kg Body Mass Index (BMI) 32.5 Intake & Output: Intake and Output for Last 24 Hours 10/31/22 11/01/22 11/02/22 23:59 23:59 23:59 Intake Total 1579.5 / 2179.5 3150 / 3150 Output Total 1800 / 1800 1000 / 1000 Balance 1579.5 / 1979.5 1350 / 1350 -1000 / -1000 Lab / Micro Data Result Diagrams: 11/02/22 05:08 11/02/22 05:08 Labs: Laboratory Results - last 24 hr 11/01/22 02:40: Urine Opiates Screen POSITIVE H, Urine Methadone Screen NEGATIVE, Ur Barbiturates Screen NEGATIVE, Ur Phencyclidine Scrn NEGATIVE, Ur Amphetamines Screen NEGATIVE, MDMA (Ecstasy) Screen NEGATIVE, U Benzodiazepines Scrn POSITIVE H, Urine Cocaine Screen NEGATIVE, U Cannabinoids Screen NEGATIVE, Ur Drug Screen Comment 11/01/22 06:35: Sodium 139, Potassium 4.0, Chloride 107, Carbon Dioxide 26.0, Anion Gap 6, BUN 15, Creatinine 0.96, Estim Creat Clear Calc 71.82, Est GFR (MDRD) Af Amer 99, Est GFR (MDRD) Non-Af 82, BUN/Creatinine Ratio 15.6, Glucose 98, Calcium 8.2 L 11/02/22 03:40: Urine Color Yellow, Urine Clarity Clear, Urine pH 5.0, Ur Specific [place] 1.015, Urine Protein 15 H, Urine Glucose (UA) Normal, Urine Ketones Negative, Urine Occult Blood 10 H, Urine Nitrite Negative, Urine Bilirubin Negative, Urine Urobilinogen Normal, Ur Leukocyte Esterase Negative, Urine RBC 0-5 SEEN, Urine WBC 0 SEEN, Ur Squamous Epith Cells 0 SEEN, Urine Bacteria 0 SEEN, Urine Mucus 0 SEEN 11/02/22 05:08: WBC 18.1 H, RBC 4.35 L, Hgb 13.2, Hct 40.2, MCV 92.4, MCH 30.3, MCHC 32.8, RDW Std Deviation 44.0 H, RDW Coeff of Sarah 13.0, Plt Count 241, MPV 9.0 11/02/22 05:08: Sodium 137, Potassium 4.0, Chloride 109 H, Carbon Dioxide 24.0, Anion Gap 4 L, BUN 17, Creatinine 0.94, Estim Creat Clear Calc 73.35, Est GFR (MDRD) Af Amer 101, Est GFR (MDRD) Non-Af 83, BUN/Creatinine Ratio 18.0, Glucose 100, Calcium 8.2 L Micro: Microbiology 10/20/22 16:19 Swab (Method) Nasal Screen MRSA/MSSA - Final Assessment & Plan Assessment/Plan (1) Status post total left knee replacement not using cement: PLAN: -Status post left total knee arthroplasty postoperative day #2 -Case and findings were discussed and reviewed at length with Dr. Mynor Kirkpatrick -Continue oxycodone and Tylenol as needed for pain attempting to minimize the use of narcotics in the perioperative period -DVT prophylaxis bilateral teds SCDs and aspirin 81 mg twice daily x1 month postoperative -Leukocytosis currently afebrile without acute signs of orthopedic infection or evidence of urinary tract infection. Continue work-up and medical management per hospitalist group. Possibly resulting from atelectasis versus acute stress response continue to monitor -Encourage incentive spirometry -Continue discharge planning with case management anticipate discharge to residential facility possibly today with insurance approval -Continue postoperative medical management per hospitalist group -Orthopedically stable okay for discharge when cleared medically having adequate pain control and doing well with physical therapy we will plan for follow-up 2 weeks reassessment with x-rays and staple removal
--- NOTE | 2022-11-02 07:39 | PN.HOSP_ITS ---
Subjective Subjective Has continued to have problems with urination including urinary retention and had a Boswell placed. He is very frustrated today as he cannot go to TCU and found this upsetting. Said he feels like he is depressed because of this episode, discussed his medication and he was out of clinic just his sertraline. He denies thoughts of hurting himself or anyone else, and just reiterated his frustration and not being able to go to TCU. Objective Data Objective Data Vital Signs: Vital Signs Temp Pulse Resp BP Pulse Ox O2 Del Method O2 Flow Rate 98.3 F 62 18 114/56 L 95 Room Air 2 11/02/22 02:56 11/02/22 02:56 11/02/22 02:56 11/02/22 02:56 11/02/22 02:56 11/02/22 02:56 11/01/22 08:10 Oxygen Flow Rate (L/min) 2 Oxygen Delivery Method Room Air Weight: 106 kg Body Mass Index (BMI) 32.5 Intake & Output: Intake and Output for Last 24 Hours 10/31/22 11/01/22 11/02/22 23:59 23:59 23:59 Intake Total 1579.5 / 2179.5 3150 / 3150 Output Total 1800 / 1800 1000 / 1000 Balance 1579.5 / 1979.5 1350 / 1350 -1000 / -1000 Lab / Micro Data Result Diagrams: 11/02/22 05:08 11/02/22 05:08 Labs: Laboratory Results - last 24 hr 11/01/22 02:40: Urine Opiates Screen POSITIVE H, Urine Methadone Screen NEGATIVE, Ur Barbiturates Screen NEGATIVE, Ur Phencyclidine Scrn NEGATIVE, Ur Amphetamines Screen NEGATIVE, MDMA (Ecstasy) Screen NEGATIVE, U Benzodiazepines Scrn POSITIVE H, Urine Cocaine Screen NEGATIVE, U Cannabinoids Screen NEGATIVE, Ur Drug Screen Comment 11/01/22 06:35: Sodium 139, Potassium 4.0, Chloride 107, Carbon Dioxide 26.0, Anion Gap 6, BUN 15, Creatinine 0.96, Estim Creat Clear Calc 71.82, Est GFR ( RD) Af Amer 99, Est GFR (MDRD) Non-Af 82, BUN/Creatinine Ratio 15.6, Glucose 98, Calcium 8.2 L 11/02/22 03:40: Urine Color Yellow, Urine Clarity Clear, Urine pH 5.0, Ur Specific Coleman 1.015, Urine Protein 15 H, Urine Glucose (UA) Normal, Urine Ketones Negative, Urine Occult Blood 10 H, Urine Nitrite Negative, Urine Bilirubin Negative, Urine Urobilinogen Normal, Ur Leukocyte Esterase Negative, Urine RBC 0-5 SEEN, Urine WBC 0 SEEN, Ur Squamous Epith Cells 0 SEEN, Urine Bacteria 0 SEEN, Urine Mucus 0 SEEN 11/02/22 05:08: WBC 18.1 H, RBC 4.35 L, Hgb 13.2, Hct 40.2, MCV 92.4, MCH 30.3, MCHC 32.8, RDW Std Deviation 44.0 H, RDW Coeff of Sarah 13.0, Plt Count 241, MPV 9.0 11/02/22 05:08: Sodium 137, Potassium 4.0, Chloride 109 H, Carbon Dioxide 24.0, Anion Gap 4 L, BUN 17, Creatinine 0.94, Estim Creat Clear Calc 73.35, Est GFR (MDRD) Af Amer 101, Est GFR (MDRD) Non-Af 83, BUN/Creatinine Ratio 18.0, Glucose 100, Calcium 8.2 L Micro: Microbiology 10/20/22 16:19 Swab (Method) Nasal Screen MRSA/MSSA - Final Physical Exam Const alert Constitutional Narrative: Appears upset HEENT normocephalic and head/scalp atraumatic Eyes Eyes Narrative: EOM grossly intact, anicteric Neck supple Resp normal respiratory effort Cardio regular rate and regular rhythm GI soft to palpation, non-tender and non-distended Extremity Extremity Narrative: No edema appreciated Neuro moves all extremities Neuro Narrative: No overt focal deficits appreciated Psych Psych Narrative: Appears anxious and upset Assessment & Plan Assessment/Plan (1) Status post total left knee replacement not using cement: PLAN: Plan #Status post total left knee replacement Performed 10/31/[address] Kirkpatrick Aspirin 81 mg twice daily for 30 days postop with outpatient Ortho follow-up and x-rays in 2 weeks PT/OT assessed Patient like to go to rehab here Awaiting insurance Auth 11/02: [facility] does not have beds, pursuing other options. Management per surgery #Urinary retention Unclear etiology continue to retain and now has Boswell placed Started on Flomax Will need to follow-up with urology in 1 week #Leukocytosis Likely reactive, no signs or symptoms of infection Was having urinary retention but UA benign Not tachycardic, not tachypneic, not hypotensive No signs, symptoms, localizing source of potential infection, leukocytosis may still be explained he has reactive plan monitor closely for signs/symptoms of infection #Anxiety/hx alcohol abuse/hx polysubstance abuse/neurocognitive disorder/anxiety and depression Called earlier but he was increasingly anxious and did not respond to hydroxyzine Given unclear alcohol history Ativan x1 was ordered Possible benefit though unclear Was found to be retaining 1200 cc of urine which may have been part of his sy mptoms Will start CIWA every 4 hours without coverage at this time with low threshold to start coverage Also given urinary retention will get UA and will also obtain UDS Continue home sertraline Will schedule melatonin tonight 11/02: Did not require any further Ativan, discussed his psychiatric medication and he was adamant against changing this. Denied any thoughts of hurting himself or others. We will need to continue to follow-up with his outpatient psychiatrist on discharge #Hypertension Continue atenolol #DVT ppx: Aspirin, SCDs Rhonda Castanon MD Charges/Coding Visit Charges Inpatient E&M: 07372 Subs Hosp L2
[2022-11-02] MEDS: Aspirin 81 MG TAB.CHEW PO ×2 (09:20→17:20)
[2022-11-02] MEDS: Atenolol 25 MG Tablet PO (09:20)
[2022-11-02] MEDS: Senna/Docusate Sodium 1 Tablet 2 TABLET PO (09:20)
[2022-11-02] MEDS: Sertraline 50 MG Tablet PO (09:20)
--- NOTE | 2022-11-02 09:41 | CASEMGMT ---
Social work SW checked with Belen at TCU. Belen shared no beds open at this time and now next anticipated discharge is 11/06. SW in to inform pt that TCU cannot accept at this time. SW reviewed SNF list with pt. Pt voiced feelings of anxiety and stress. SW offered support, validated feelings and reminded pt that SNF in community would be alternative option and pt does not have to go home alone if insurance will cover SNF in community. Pt voiced anxiety with concern over finances and the hospital bill as he waits to hear back for acceptance. Pt shared next preference would be [facility] and confirmed approval for SW to send referral to [facility]. SW sent referral to [facility] at this time. SW called pt daughter, Arabella, to inform of new plan. Arabella asking many questions about the process once again. SW offered support and education. Arabella voiced understanding the plan is now for pt to go to [facility] pending acceptance and insurance authorization. PLAN: [facility], pending acceptance and precert. LUIS Mahmood
--- NOTE | 2022-11-02 10:37 | CASEMGMT ---
Social Work SW received message from [facility]. [facility] is able to accept pt. Precert to be started this morning. SW in to notify pt of acceptance. Explained prior insurance auth needs to be obtained. Pt voiced understanding. PLAN: [facility], pending precert. LUIS Mahmood
--- NOTE | 2022-11-02 12:06 | NURSING ---
Pt rates pain 8/10 declined pain meds. he is anxious and nurse offered Hydroxyzine for anxiety but he states I am all right.
[2022-11-02] MEDS: hydrOXYzine 10 MG Tablet PO (14:25)
--- NOTE | 2022-11-02 15:27 | NURSING ---
Dr Castanon texted that pt is begging the nurse to take the leggett out, she said no for now and will give it some thought. Each time it is removed it will go in harder and caused more trauma.
--- NOTE | 2022-11-02 15:52 | NURSING ---
Pt was notified of the Dr's decision about the leggett cathether.
[2022-11-02] MEDS: Tamsulosin HCl 0.4 MG Capsule PO (17:20)
[2022-11-03] MEDS: oxyCODONE 5 MG Tablet PO (01:03)
[2022-11-03 02:00] VITALS: BP 138/79; PULSE 76; RESP 18; TEMP 37.2; O2SAT 97
[2022-11-03 06:18] LABS: Hemoglobin 12.9 g/dL (13.0-16.5); Mean Corp Hgb Conc 33.9 g/dL (32-36); Mean Corpuscular Hgb 31.2 pg (27.0-32.0); Mean Platelet Vol. 8.9 fl (6.2-12.0); Platelet Count 247 K/mm3 (150-450); RBC Distribution Width CV 13.2 % (11.6-14.6); Red Blood Count 4.13 M/mm3 (4.6-6.2); White Blood Count 14.6 K/mm3 (4.4-11.0)
[2022-11-03] MEDS: Acetaminophen 500 MG Tablet 1000 MG PO ×2 (06:31→13:53)
[2022-11-03 07:00] VITALS: O2SAT 97
[2022-11-03 07:11] LABS: ALB/GLOB Ratio 0.7 RATIO (0.9-2.4); AST(SGOT) 4 U/L (15-37); Alanine Aminotransfer ALT/SGPT 12 U/L (16-61); Albumin, Serum 2.3 g/dL (3.2-5.0); Alkaline Phosphatase 49 U/L (45-117); Anion Gap 6 (5-15); BUN 15 mg/dL (7-18); BUN/Creat Ratio 16.3 RATIO (10-20); Calcium,Total 8.4 mg/dL (8.5-10.1); Chloride 106 mmol/L (98-107); Creatinine, Serum 0.92 mg/dL (0.70-1.30); EST Glomerular Filtration Rate 86 mL/min (>60); Est Glom Filt Rate - Afr Amer 104 mL/min (>60); Estimated Creatinine Clearance 74.94 ml/min; Globulin 3.4 g/dL (2.2-4.2); Glucose 98 mg/dL (74-106); Potassium 4.1 mmol/L (3.5-5.1); Protein, Total 5.7 g/dL (6.4-8.2); Sodium Level 137 mmol/L (136-145)
[2022-11-03 08:34] VITALS: BP 140/81; PULSE 73; RESP 18; TEMP 36.7; O2SAT 98
[2022-11-03 08:37] VITALS: PULSE 80
[2022-11-03] MEDS: Sertraline 50 MG Tablet PO (08:50)
[2022-11-03] MEDS: Aspirin 81 MG TAB.CHEW PO (08:50)
[2022-11-03] MEDS: Atenolol 25 MG Tablet PO (08:50)
[2022-11-03] MEDS: Senna/Docusate Sodium 1 Tablet 2 TABLET PO (08:50)
--- NOTE | 2022-11-03 08:57 | PCM.PN.HOSP ---
Subjective Subjective Doing well, no complaints other than wanting catheter out Objective Data Objective Data Vital Signs: Vital Signs Temp Pulse Resp BP Pulse Ox O2 Del Method O2 Flow Rate 98.1 F 80 18 140/81 H 98 Room Air 2 11/03/22 08:34 11/03/22 08:37 11/03/22 08:34 11/03/22 08:34 11/03/22 08:34 11/03/22 08:37 11/01/22 08:10 Oxygen Flow Rate (L/min) 2 Oxygen Delivery Method Room Air Weight: 106 kg Body Mass Index (BMI) 32.5 Intake & Output: Intake and Output for Last 24 Hours 11/01/22 11/02/22 11/03/22 23:59 23:59 23:59 Intake Total 3150 / 3150 500 / 800 800 / 800 Output Total 1800 / 1800 1815 / 2215 950 / 950 Balance 1350 / 1350 -1315 / -1415 -150 / -150 Lab / Micro Data Result Diagrams: 11/03/22 05:41 11/03/22 05:41 Labs: Laboratory Results - last 24 hr 11/03/22 05:41: WBC 14.6 H, RBC 4.13 L, Hgb 12.9 L, Hct 38.0 L, MCV 92.0, MCH 31.2, MCHC 33.9, RDW Std Deviation 45.0 H, RDW Coeff of Sarah 13.2, Plt Count 247, MPV 8.9 11/03/22 05:41: Sodium 137, Potassium 4.1, Chloride 106, Carbon Dioxide 25.0, Anion Gap 6, BUN 15, Creatinine 0.92, Estim Creat Clear Calc 74.94, Est GFR (MDRD) Af Amer 104, Est GFR (MDRD) Non-Af 86, BUN/Creatinine Ratio 16.3, Glucose 98, Calcium 8.4 L, Total Bilirubin 0.50, AST 4 L, ALT 12 L, Alkaline Phosphatase 49, Total Protein 5.7 L, Albumin 2.3 L, Globulin 3.4, Albumin/Globulin Ratio 0.7 L Micro: Microbiology 10/20/22 16:19 Swab (Method) Nasal Screen MRSA/MSSA - Final Physical Exam Const alert and no apparent distress HEENT normocephalic and head/scalp atraumatic Eyes Eyes Narrative: EOM grossly intact, anicteric Neck supple Resp normal respiratory effort Cardio regular rate and regular rhythm GI soft to palpation, non-tender and non-distended Extremity Extremity Narrative: No edema appreciated Neuro moves all extremities Neuro Narrative: No overt focal deficits appreciated Psych Psych Narrative: Appears anxious and upset Assessment & Plan Assessment/Plan (1) Status post total left knee replacement not using cement: PLAN: Plan #Status post total left knee replacement Performed 10/31/[address] Kirkpatrick Aspirin 81 mg twice daily for 30 days postop with outpatient Ortho follow-up and x-rays in 2 weeks PT/OT assessed Patient like to go to rehab here Awaiting insurance Auth 11/02: TCU does not have beds, pursuing other options. Management per surgery #Urinary retention Unclear etiology continue to retain and now has Richardson placed Started on Flomax 11/03/22: RECOMMEND CONTINUING FLOMAX RICHARDSON REMOVED PER PT REQUEST AFTER DISCUSSING RISKS AND BENEFITS WOULD RECOMMEND POST VOID BLADDER SCAN TID FOR 24-48 HOURS TO VERIFY VOIDING, VERBALIZED HIS UNDERSTANDING THAT IT WILL NEED REPLACED IF NOT VOIDING FOLLOW UP WITH UROLOGY IN THE OFFICE- CALL TO SCHEDULE AN APPOINTMENT #Leukocytosis Likely reactive, no signs or symptoms of infection Was having urinary retention but UA benign Not tachycardic, not tachypneic, not hypotensive No signs, symptoms, localizing source of potential infection, leukocytosis may still be explained he has reactive plan monitor closely for signs/symptoms of infection 11/03: WBC down trended to 14.6 without intervention, does point to it being reactive in nature, no indication to begin antibiotics #Anxiety/hx alcohol abuse/hx polysubstance abuse/neurocognitive disorder/anxiety and depression Called earlier but he was increasingly anxious and did not respond to hydroxyzine Given unclear alcohol history Ativan x1 was ordered Possible benefit though unclear Was found to be retaining 1200 cc of urine which may have been part of his symptoms Will start CIWA every 4 hours without coverage at this time with low threshold to start coverage Also given urinary retention will get UA and will also obtain UDS Continue home sertraline Will schedule melatonin tonight 11/02: Did not require any further Ativan, discussed his psychiatric medication and he was adamant against changing this. Denied any thoughts of hurting himself or others. We will need to continue to follow-up with his outpatient psychiatrist on discharge #Hypertension Continue atenolol #DVT ppx: Aspirin, SCDs Rhonda Castanon, MD Charges/Coding Visit Charges Inpatient E&M: 58779 Subs Hosp L2
--- NOTE | 2022-11-03 11:43 | CASEMGMT ---
Addendum entered by Tammy Rose 11/03/22 13:19: SW inquired if pt would like daughter, Arabella, updated on plan. Pt declined, stated upset with daughter for not allowing pt to come to her home. Pt stated I will call her when I get to the [facility]. Original Note: Social work SW received notice that insurance auth has been obtained. SW notified pt, who expressed great anxiety about transferring to SNf in the community. Pt has struggled with anxiety since being admitted. SW reminded pt to use coping skills to manage intrusive thoughts. Pt nodded head but did not appear receptive to guidance from SW. Pt asked several times about staying at [facility]. SW informed there are no beds. Pt was concerned that pt not allowed to stay at [facility] due to anxiety. SW reassured pt that is not the case and that no beds are available at this time to accomodate pt. Pt asked to change to new nursing facility. SW informed if pt changes that insurance auth will be restarted and there is no guarantee that pt will be approved for a second time due to progress in therapy. Pt finally agreeable to [facility] and d/c today. SW informed Dr. Kirkpatrick and CLE[facility] Alvarez. SW informed of what documents are needed to send pt to SNF. CLEMENT Alvarez stated transfer to ECF was completed on paper and placed pn pt chart. SW informed the prescription that was on chart is not on prescription paper and will need fixed. SW called SNF to get pharmacy so CLEMENT Alvarez can send electronic script. Abageal from [facility] informed SW via phone that Pharmacy is [facility] pharmacy in [place], [place]. SUJATHA relayed this information to CLEMENT Alvarez. SW also informed a signed med list will be needed. CLEMENT Alvarez stated to fax the med list and PA will sign and fax back. SW faxed med list. Will await the fax to be returned. PLAN: [facility] LUIS Mahmood
--- NOTE | 2022-11-03 12:18 | NURSING ---
Texted Dr Wyman if she wants the leggett to stay on discharge or remove it.
--- NOTE | 2022-11-03 13:11 | NURSING ---
Boswell removed as per order from Dr Castanon.
--- NOTE | 2022-11-03 13:24 | CASEMGMT ---
Social Work? SUJATHA completed PASRR form in [employer]. Called to set up transportation through [facility]. [facility] informed SUJATHA that as of Oct 23 that [facility] no longer contracts with [facility] and cannot help SW to set up transport. SUJATHA called [facility] to ask if a new contracter had been established. PA dispatch stated [employer] should still be the correct one. PA dispatch stated would take details for transport and clear up confusion with [employer]. Wheelchair transportation was set up through [facility] for 4:00 pm. SUJATHA faxed all discharge orders to [facility] via [employer] and notified of discharge time. SUJATHA notified pt nurse of transport time. SUJATHA made copies of discharge orders and placed on pt chart. Sent original orders in envelope with pt upon discharge.?? Disposition: [facility], skilled, convalescent, level of care? LUIS Mahmood
[2022-11-03 13:48] VITALS: BP 143/83; PULSE 72; RESP 18; TEMP 37.2; O2SAT 98
[2022-11-03] MEDS: hydrOXYzine 10 MG Tablet PO (13:54)
--- NOTE | 2022-11-03 15:41 | CHAPLAIN ---
Type of Pastoral Visit ___ Initial Visit _x__ Follow-up Visit ___ On-call Visit ___ General Patient Visit ___ Spiritual Assessment ___ Family Conference ___ Bereavement ___ Rapid Response ___ Code Blue ___ Other (describe below) Pastoral Care Referral From _x__ Patient ___ Family ___ Nurse ___ Physician ___ Paver Layer ___ Pony Ride Operator ___ Other (describe below) Sacrament/Intervention _x__ Active listening ___ Anointing ___ Presybeterian ___ Bereavement ___ Communion ___ Kimberlyn exploration ___ ___ Life review _x__ Prayer ___ Reconciliation ___ Sacrament of Sick _x__ Supportive presence ___ Wedding ___ Other (describe below) Pastoral Comments patient repeats statements of anxiety including concerns about urination, going to [facility] for rehab, and his recovery; pt says I just want to sleep; pt makes statement I;m not going to do anything crazy; pt speaks of his kimberlyn practices and that he brought he reading materials but I haven't even looked at them; pt welcomes prayer and presence
[2022-11-03] MEDS: Tamsulosin HCl 0.4 MG Capsule PO (15:44)
--- NOTE | 2022-11-03 15:54 | NURSING ---
Report called to Shilpa at [facility].
== END 2022-11-03 16:39 | disposition skilled nursing facility (03) ==
LOC: SDC 08:51 → MS3 08:51
PROVIDERS: Anesthesiology; Internal Medicine; Admitting Provider Orthopaedic Surgery; PCP Family Medicine; Referring Provider Orthopaedic Surgery; Visit Provider Orthopaedic Surgery
PROC: (CPT 27447; principal; 2022-10-31 12:35)
DX: M17.32 Unilateral post-traumatic osteoarthritis, left knee (principal); R33.9 Retention of urine, unspecified; Z79.899 Other long term (current) drug therapy; I10 Essential (primary) hypertension; E66.9 Obesity, unspecified; Z68.35 Body mass index [BMI] 35.0-35.9, adult; F32.A Depression, unspecified; F41.9 Anxiety disorder, unspecified
CPT/HCPCS: 27447; 01402; 64447; 36415; 51702; 73560; 80048; 80053; 80307; 81001; 82962; 83036; 83735; 85027; 87081; 87635; 88305; 88311; 96361; 96365; 96366; 97110; 97116; 97162; 97166; 97530; 97535; 99221; C1776; C9803; J7120; A4216; G0378; J3475; U0003; U0005

== ENCOUNTER → 2022-11-16 | Outpatient (CLI) | payer MEDICARE, SELFPAY | END | disposition home or self-care (01) | LOC: US 17:32 | PROVIDERS: PCP Family Medicine; Visit Provider Family Medicine | DX: R33.9 Retention of urine, unspecified (principal) | CPT/HCPCS: 87086 ==

== ENCOUNTER 2022-11-26 06:24 | Emergency (ER) | payer MEDICARE, SELFPAY ==
[2022-11-26 06:30] VITALS: TEMP 37.1; BMI 32.8
--- NOTE | 2022-11-26 06:55 | RAD_ITS ---
INDICATION: abd pain EXAMINATION/TECHNIQUE: X-RAY - XR Abdomen Series W/ Chest 1 View COMPARISON: FINDINGS: --Chest: LINES/DEVICES: None. LUNGS: Minimal bibasilar atelectasis or fibrosis. MEDIASTINUM AND CARDIOVASCULAR STRUCTURES: Cardiac silhouette not enlarged. Central airways and mediastinal contour are unremarkable. BONES AND SOFT TISSUES: No acute findings. --Abdomen: BOWEL GAS PATTERN: Mild small bowel ileus throughout the abdomen. Colonic gas pattern normal. FREE AIR: None visualized. ORGANOMEGALY: Not seen. CALCIFICATIONS: No abnormal calcifications observed. BONES AND SOFT TISSUES: No acute findings. RAD/Acute Abdomen Inc Chest IMPRESSION: Mild small bowel ileus. Normal bibasilar atelectasis or fibrosis. Electronically Signed: Slava Castro MD, ANG at 9:01 EST ,
[2022-11-26 07:28] LABS: Absolute Lymphocyte Count 1.51 X10^3/uL (0.83-4.51); Absolute Neutrophil Count 14.6 X10^3/uL (2.0-7.7); Basophil# 0.05 X10^3/uL; Basophil% 0.3 % (0-1); Eosinophil# 0.11 X10^3/uL; Eosinophils% 0.6 % (0-5); Hematocrit 40.1 % (40-54); Hemoglobin 13.2 g/dL (13.0-16.5); Lymphocyte # 1.51 X10^3/ul (0.83-4.51); Lymphocyte % 8.5 % (19-41); Mean Corp Hgb Conc 32.9 g/dL (32-36); Mean Corpuscular Hgb 29.7 pg (27.0-32.0); Mean Corpuscular Volume 90.3 fL (80-94); Mean Platelet Vol. 8.2 fl (6.2-12.0); Monocyte# 1.45 X10^3/uL; Monocyte% 8.2 % (0-10); NRBC Flagged by Analyzer 0 % (0-5); Neutrophil # 14.58 X10^3/uL (2.7-7.7); Neutrophil % 81.9 % (47-70); Platelet Count 406 K/mm3 (150-450); RBC Distribution Width CV 12.7 % (11.6-14.6); RBC Distribution Width SD 41.7 fl (35.1-43.9); Red Blood Count 4.44 M/mm3 (4.6-6.2); White Blood Count 17.8 K/mm3 (4.4-11.0)
--- NOTE | 2022-11-26 07:41 | EX.ED.DYSGE1 ---
HPI History of Present Illness Chief Complaint: Complaint Narrative Narrative: Patient is a 72-year-old male with past medical history of depression and anxiety. He presents today with multiple complaints. His main complaint is that he believes that after he was given an epidural for surgery approximate 1 month ago that he has had difficulty with bowel movements and urinating. He states that he also has been taking pain medication however. He denies any bouts of nausea or vomiting or history of previous obstruction. He states that today he finally took a laxative and did not go shortly afterwards and this concerned him and secondary to this he comes in for evaluation. [facility] Medical History Alcohol abuse Alcohol use disorder Anxiety Arthritis Back pain Depression Easy bruising Excessive bleeding PATRIA (generalized anxiety disorder) Gout History of pain when walking History of steroid therapy Hypertension Injury of head and neck MDD (major depressive disorder) Neurocognitive disorder Non-smoker Wears glasses Home Medications atenolol 25 mg tablet 25 mg PO DAILY 12/15/20 [History Last Taken Unknown] sertraline 50 mg tablet (Zoloft) 50 mg PO DAILY #30 tabs 10/12/22 [Rx Last Taken Unknown] multivitamin 1 tab PO DAILY 10/18/22 [History Last Taken Unknown] aspirin 81 mg chewable tablet 81 mg PO BIDCM #60 tabs 11/02/22 [Rx Last Taken Unknown] sennosides 8.6 mg-docusate sodium 50 mg tablet (Stool Softener-Stimulant Laxative) 2 tab PO BID #30 tabs 11/02/22 [Rx Last Taken Unknown] tamsulosin 0.4 mg capsule 0.4 mg PO DAILY@1730 #0 caps 11/03/22 [Rx Last Taken Unknown] hydroxyzine HCl 10 mg tablet See Rx Instructions .Route .COMPLEX #60 tabs 11/17/22 [Rx Last Taken Unknown] Allergy/AdvReac Type Severity Reaction Status Date / Time No Known Allergies Allergy Verified 10/31/22 10:37 Surgical History (Updated 11/01/22 @ 07:43 by Prasanth VAUGHAN PA-C) Hx of anterior cruciate ligament surgery Social History Smoking Status: Never smoker alcohol intake: current substance use type: former substance user and crack/cocaine what type of physical activity do you participate in: swimming frequency: 5-6 times per week ROS ROS ED Constitutional Constitutional ED: Denies chills or fever(s) ENT ENT ED: Denies sore throat Cardiovascular Cardiovascular: Denies chest pain Respiratory/Chest Respiratory/Chest: Denies cough or dyspnea Gastrointestinal Gastrointestinal: Reports constipation; Denies abdominal pain, diarrhea, nausea or vomiting Genitourinary Genitourinary ED: Denies dysuria Integumentary Denies rash Neurologic Neurologic: Denies headache(s) Psychiatric Psychiatric: Reports anxiety Hematologic/Lymphatic Hematologic/Lymphatic: Denies easy bleeding or easy bruising EXAM Physical Exam Const Vital Signs: 11/26/22 06:30 Temperature 98.7 F Temperature Source Temporal Positive well nourished, well developed and obese General Appearance ED: well developed Nutritional Appearance: obese HEENT Reports moist mucous membranes Eyes PERRL and EOMs intact bilaterally Neck supple Resp normal respiratory effort and clear to auscultation bilaterally Cardio regular rate and regular rhythm Rate: other Other Details: Radial pulses are plus 2 out of 4 bilaterally are equal and symmetric GI non-tender and non-distended GI Narrative: Abdomen is soft nontender nondistended with hypoactive bowel sounds. No voluntary guarding or rigidity. No pulsatile mass or fluid wave. No organomegaly or distended bladder to suggest urinary retention. No increased tympany to suggest obstruction. Auscultation: hypoactive bowel sounds Palpation: soft Extremity normal to inspection Extremity Narrative: No bony deformity or joint effusions noted. No asymmetric edema no pitting edema negative Homans' sign bilaterally. Surgical incision is clean dry and intact. No superficial soft tissue changes such as erythema or warmth to suggest infection Neuro oriented x3 and CN's II-XII intact bilaterally Sensorium / Orientation: alert Psych Psych Narrative: Patient has a nervous/anxious affect Skin no rashes or lesions noted MDM MDM MDM Narrative Medical decision making narrative: Patient presented to the ER afebrile and in no acute distress. He had multiple complaints but his main 1 was difficult bowel movements and urination and he had concern for possible bowel blockage or kidney problems. Secondary to this I did elect to perform basic blood work. His white count is elevated at 17.8 but chart review reveals his white count is chronically elevated and he has no physical exam findings such as abdominal pain or soft tissue skin changes to suggest infection and therefore do not feel this needs to be further evaluated. Patient had no signs of acute kidney injury or severe electrolyte derangement either. His bladder scan did not reveal any type of severe retention which fits his clinical exam and x-ray showed no signs of obstruction. Therefore at this time patient can follow-up on outpatient basis with his family doctor and return to the ER should he have any further concerns or worsening of symptoms Lab Data Attestation: I reviewed the patient's lab results. Labs: Laboratory Results - last 24 hr 11/26/22 11/26/22 07:25 07:25 WBC 17.8 H RBC 4.44 L Hgb 13.2 Hct 40.1 MCV 90.3 MCH 29.7 MCHC 32.9 RDW Std Deviation 41.7 RDW Coeff of Sarah 12.7 Plt Count 406 MPV 8.2 Immature Gran % (Auto) 0.500 Neut % (Auto) 81.9 H Lymph % (Auto) 8.5 L [place] % (Auto) 8.2 Eos % (Auto) 0.6 Baso % (Auto) 0.3 Absolute Neuts (auto) 14.6 H Absolute Lymphs (auto) 1.51 Nucleated RBC % 0 Sodium 135 L Potassium 4.5 Chloride 103 Carbon Dioxide 24.0 Anion Gap 8 BUN 25 H Creatinine 1.27 Estim Creat Clear Calc 56.00 Est GFR (MDRD) Af Amer 72 Est GFR (MDRD) Non-Af 59 L BUN/Creatinine Ratio 19.7 Glucose 130 H Calcium 9.4 Magnesium 2.2 Total Bilirubin 0.60 Direct Bilirubin 0.23 AST 8 L ALT 16 Alkaline Phosphatase 76 Total Protein 7.8 Albumin 3.4 Globulin 4.4 H Radiography Diagnostic Testing: Acute abdominal series as interpreted by the emergency medicine physician reveals a nonobstructive nonspecific bowel gas pattern and 1 view chest x-ray that accompanies it reveals no acute infiltrate pneumothorax or pleural effusion Discharge Plan Triage Chief Complaint: Complaint ED Provider: Marco Bueno Dx/Rx/DC Orders Clinical Impression: Constipation, PATRIA (generalized anxiety disorder) Instructions: ED Constipation (Adult) Prescriptions: No Action atenolol 25 MG tablet 25 mg PO DAILY Rx Instructions: PT UNSURE OF CORRECT DOSE multivitamin Tablet 1 tab PO DAILY sennosides-docusate sodium [Stool Softener-Stimulant Laxat] 8.6-50 mg Tablet 2 tab PO BID Qty: 30 0RF aspirin 81 mg Tablet,Chewable 81 mg PO BIDCM Qty: 60 0RF tamsulosin 0.4 mg Capsule 0.4 mg PO DAILY@1730 Qty: 0 0RF sertraline [Zoloft] 50 mg tablet 50 mg PO DAILY Qty: 30 2RF hydroxyzine HCl 10 mg tablet See Rx Instructions .ROUTE .COMPLEX Qty: 60 1RF Dose Instruction: TAKE 1 TABLET BY MOUTH TWICE A DAY NEEDED FOR ANXIETY Rx Instructions: TAKE 1 TABLET BY MOUTH TWICE A DAY NEEDED FOR ANXIETY Primary Care Provider: Michael Trimble Referrals: Michael Trimble MD [Primary Care Provider] - Activity Restrictions/Additional Instructions: Please keep yourself well-hydrated and continue your home medications as directed by your family doctor. Please return to the ER should you have any further concerns or worsening of symptoms Disposition Disposition: Home, Self Care
[2022-11-26 07:44] LABS: AST(SGOT) 8 U/L (15-37); Alanine Aminotransfer ALT/SGPT 16 U/L (16-61); Albumin, Serum 3.4 g/dL (3.2-5.0); Alkaline Phosphatase 76 U/L (45-117); Anion Gap 8 (5-15); BUN 25 mg/dL (7-18); BUN/Creat Ratio 19.7 RATIO (10-20); Bilirubin, Direct 0.23 mg/dL (0.00-0.30); Calcium,Total 9.4 mg/dL (8.5-10.1); Chloride 103 mmol/L (98-107); Creatinine, Serum 1.27 mg/dL (0.70-1.30); EST Glomerular Filtration Rate 59 mL/min (>60); Est Glom Filt Rate - Afr Amer 72 mL/min (>60); Globulin 4.4 g/dL (2.2-4.2); Glucose 130 mg/dL (74-106); Magnesium 2.2 mg/dL (1.6-2.6); Potassium 4.5 mmol/L (3.5-5.1); Protein, Total 7.8 g/dL (6.4-8.2); Sodium Level 135 mmol/L (136-145)
[2022-11-26] MEDS: Amox/Clavulanate 875 MG Tablet PO (08:59)
[2022-11-26 10:48] LABS: Bacteria 0 SEEN /hpf (None Seen); Mucous, Urine 0 SEEN /hpf (<or=2+); Squamous Epithelial Cells - UA 0 SEEN /hpf (0-5); White Blood Cells 0 SEEN /hpf (0-5)
[2022-11-26 10:49] VITALS: BP 140/77; PULSE 77; RESP 16; TEMP 36.3; O2SAT 97
[2022-11-26 10:53] LABS: Color, Urine Yellow (Yellow); Glucose, Dipstick Normal (Normal); Ketone-Dipstick Negative (Negative); Leukocyte Esterase-Dipstick Negative /ul (Negative); Nitrite-Dipstick Negative (Negative); Occult Blood-Urine 10 /ul (Negative); Protein-Dipstick 15 mg/dl (Negative); Specific Gravity, Urine 1.015 (1.002-1.030); Urine Bilirubin Dipstick Negative (Negative); Urine Clarity Clear (Clear); Urine Urobilinogen Normal (Normal)
[2022-11-26 11:01] LABS: Red Blood Cells-Urine 0-5 SEEN /hpf (0-5)
--- NOTE | 2022-11-26 11:30 | NURSING ---
CALLED [facility] ABOUT TRANSFER TO [place], TALKED TO MAUREEN PACHECO
--- NOTE | 2022-11-26 12:20 | CM.ED ---
Social Work Note Referral Source: MD Lucio Referral reason: D/C planning MD Lucio met with SW to review patient's symptoms and current concerns regarding going home with catheter. SW to follow up. SW met with patient and introduced herself and role as [facility] Web Applications Programmer. Patient was laying in bed and agreeable to talk with SW. Patient was on the phone with his daughter but did not want her to be a part of the conversation, so patient ended the phone call. SW inquired about patient's living arrangements and concerns regarding going home. Patient briefly discussed living with his daughter and inquired about his ability to go to TCU. SW explained patient did not meet requirements to go to a SNF and TCU did not have any available beds. SW inquired about patient's ability to return home, however, patient continued to inquire about TCU, then stated he would think about returning home. SW informed patient was fixated on going to TCU but considering going home. MD to follow up with patient's family to discuss recommendations and provide education regarding patient's catheter. Plan: D/C home Samantha WHITMORE, GRIFFIN
--- NOTE | 2022-11-26 14:12 | ED.RN ---
Patients ex and daughter on the phone asking various questions about catheter and his care. Daughter asking questions regarding his output and catheter. More questions about medications he was prescribed. Patient has multiple family members on the phone asking questions reguarding catheter care. family members requesting him to be admitted to hospital. Dr. Lucio at bedside explaining patient does not have a medical reason to be admitted. currently there are not beds on TCU available for patient to go to.
--- NOTE | 2022-11-26 16:08 | ED.RN ---
patient continues to refuse to leave. Charge nurse epi notified and kari, Nursing production supervisor off shift
--- NOTE | 2022-11-26 16:24 | ED.RN ---
THIS RN SPOKE WITH THE PATIENT FOR OVER 1 HOUR AT BEDSIDE. THE PATIENT EXPRESSED THAT HE DIDN'T KNOW WHAT TO DO REFERRING TO GOING HOME WITH OR WITHOUT A CATHETER. THIS RN SPOKE WITH 4 DIFFERENT FRIENDS AND FAMILY MEMBERS OVER THE PHONE ON SPEAKERPHONE. ALL OF THE FAMILY MEMBERS WERE VERY SUPPORTIVE OF HIS CARE AND OF HIM RETURNING HOME. THEY TOLD HIM THAT HE WAS BEING UNREASONABLE AND HE NEEDED TO LEAVE THE ED. THE DAUGHTER HE LIVES WITH LINDA, VERBALIZED UNDERSTANDING OF HOME CARE AND TO CALL UROLOGY OFFICE ON MONDAY. PATIENT CONTINUES TO PACE AROUND THE ROOM NOT FOLLOWING INSTRUCTIONS TO PUT HIS CLOTHES ON TO LEAVE. PT WAS ASKED TO MAKE A FINAL DECISION. HE STATES YOU ARE INFRINGING ON MY CIVIL RIGHTS CALL THE POLICE. AT THIS POINT THIS RN LEAVES THE ROOM AND CALLS THE POLICE. THE PT HITS HIS CALL LIGHT CONTINUOUSLY STATING HE CHANGED HIS MIND AGAIN AND WANTS IT OUT. HE IS INFORMED THE POLICE WILL BE HERE IN A FEW MINUTES, AND WE WILL ADDRESS THAT WHEN THEY COME DUE TO PT MAKING ACCUSATIONS THAT WE WERE VIOLATING HIS RIGHTS. 3 [employer] OFFICERS ARRIVE TO THE ED AND ARE UPDATED ON THE PATIENTS CARE AND LANGUAGE. THIS RN APPROACHED THE PT WITH PD NOW PRESENT AND HE STATES HIS FINAL DECISION IS HE WANTS THE CATHETER OUT. THIS RN REMOVES THE CATHETER PER PROTOCOL, PULLING 10CC OF NS WITH A SYRINGE. CATHETER INTEGRITY INTACT. PT PUTS THE REST OF HIS CLOTHES ON AND IN ESCORTED OUT BY P.D. AND INTO HIS TRUCK.
[2022-11-26 16:53] VITALS: RESP 18
== END 2022-11-26 16:55 | disposition home or self-care (01) ==
PROVIDERS: Emergency Medicine; Emergency Provider Emergency Medicine; PCP Family Medicine; Visit Provider Emergency Medicine
DX: K59.00 Constipation, unspecified (principal); I10 Essential (primary) hypertension; F41.1 Generalized anxiety disorder; E66.9 Obesity, unspecified
CPT/HCPCS: 74022; 80048; 80076; 81001; 83735; 85025; 99282

== ENCOUNTER → 2022-12-05 | Outpatient (CLI) | payer MEDICARE, SELFPAY ==
--- NOTE | 2022-12-05 15:08 | VDLE_ITS ---
Reason For Study: Pain in left leg RIGHT LEFT CFV is compressible, spontaneous, phasic, GSV is normal. competent and demonstrates normal CFV is compressible, spontaneous, phasic, augmentation. competent, and demonstrates normal Procedure augmentation. This is a venous duplex using B-mode, color FV is compressible, spontaneous, phasic, flow and spectral Doppler. competent and demonstrates normal Exam performed in department. augmentation. A preliminary report was called and/or faxed POP V is compressible, spontaneous, phasic, to Casimiro. competent and demonstrates normal augmentation. T/P Trunk is compressible. PTV is compressible. LT PerV is compressible. VL/Venous Duplex US, Unilateral Interpretation Summary Deep veins of the left lower extremity are patent and compressible segmentally. There is no evidence of left lower extremity deep vein thrombosis. The left great saphenous vein ronald ears patent and compressible segmentally. Ordering Physician: Mynor Kirkpatrick Referring Physician: Michael Trimble Performed By: Blanca Peters RVT
--- NOTE | 2022-12-05 15:55 | US_ITS ---
EXAM: US PELVIS TRANSABDOMINAL, COMPLETE CLINICAL INDICATION: INCOMPLETE BLADDER EMPTYING -- '' TECHNIQUE: Real-time complete pelvic ultrasound with image documentation. This report was created using [employer] report generation technology. COMPARISON: None. FINDINGS: PROSTATE: The prostate measures 4.3 x 3.5 x 4.6 cm. SEMINAL VESICLES: Not identified due to lack of a sufficient acoustic window. BLADDER: Bladder there is a 1.0 x 0.9 x 0.8 cm hypoechoic nodular structure in the posterior bladder wall. The bladder measures 15.6 x 10.5 x 11.0 cm for volume of 947 mL. The patient unable. The bladder wall measures 4 mm. US/Post Void Residual Bladder IMPRESSION: Patient unable to void. There is a small nodular density in the bladder possibly representing a small polyp. Electronically Signed: Jesus Ricketts MD at 18:51 EST ,
== END | disposition home or self-care (01) ==
PROVIDERS: PCP Family Medicine; Visit Provider Family Medicine
DX: M79.662 Pain in left lower leg (principal); R33.9 Retention of urine, unspecified
CPT/HCPCS: 51798; 93971

== ENCOUNTER 2022-12-30 13:30 | Outpatient (RCR) | payer MEDICARE, SELFPAY ==
--- NOTE | 2022-11-21 16:58 | HP.PTEVAL ---
Patient's Visit Information SIDNEY POLLARD is a 72 year old M referred to Physical Therapy by Dr. Mynor Valentino MD with a diagnosis of L TKR. Date of Evaluation: 11/21/22 Physical Therapist: Rehana Marks PT, Cert MDT - Visit Plan Frequency: 2-3x /Week Duration: 4-6 Weeks Plan: *GAIT BELT FOR SAFETY AND ESCORT PATIENT TO LOBBY POST SESSION*. TKR REHAB FOR GAIT TRAINING, ROM, STRETCHING AND STRENGTHENING TO HELP MEET SET GOALS. - Subjective S/P L TKR 10/31/[address] VALENTINO. Work/Leisure: RETIRED. LIVES WITH DAUGHTER. LIVING ON MAIN FLOOR. 2-3 STEPS INTO HOME WITHOUT HR'S. GETTING IN AND OUT OF HOUSE WITHOUT AD. AVID DAILY SWIMMER AND WAS SWIMMING UP UNTIL THE TIME OF SURGERY. Present symptoms: L KNEE PAIN. Present since: MAY 2021 SLIPPED AND FELL ON TILE AT POOL AND KNEE HYPEREXTENDED. 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 Pain Scale: WORST 8/10, LEAST 0/10. Currently: 4-6/10 WALKING IN TO PT TODAY. Is it getting better, worse or staying the same: STAYING THE SAME. Worse: STANDING AND WALKING. Better: SITTING AND LYING DOWN. Disturbed sleep: YES. Previous history/Previous treatment: PHYSICAL THERAPY IN [place] OVER THE SUMMER. Treatment this episode: [facility] D[facility]C HOME 11/12/22. Gait: PATIENT REPORTS USING WALKER OFF AND ON. Bowel or Bladder Dysfunction: YES - PATIENT REPORTS ONSET A FEW DAYS AFTER SURGERY. FIRST CLARA'T TO ESTABLISH CARE WITH DR. KESSLER AT [facility] IS TOMORROW. SAW DR. SALDAÑA AT [facility] TO DISCUSS INCONTINENCE BUT DAUGHTER REPORTS CLARA'T WAS BRIEF. DAUGHTER REPORTS DR. SALDAÑA DX'D HIM WITH ENLARGED PROSTATE AND PUT HIM ON FLOMAX AND URINALYSIS WAS NORMAL. PATIENT REPORTS THE FLOMAX MADE THE INCONINENCE WORSE AND SO HE STOPPED TAKING IT AND WILL FOLLOW UP WITH DR. KESSLER ABOUT IT TOMORROW. Unexplained weight loss: PATIENT REPORTS LOSING WEIGHT ON PURPOSE BEFORE SURGERY AND STATES HE HAS GAINED ABOUT 5 LBS BACK SINCE SURGERY. DAUGHTER REPORTS HER DAD IS EATING A LOT LESS AND DRINKING A LOT LESS AND WILL DISCUSS WITH DR. KESSLER TOMORROW. Imaging: PATIENT AND DAUGHTER REPORT THEY WERE TOLD X-RAY AFTER SURGERY LOOKS GOOD. PMH/Recent major surgery: HTN, MAJOR ANXIETY PER DAUGHTER. PATIENT DENIES PATIENT HAVING ANY DX OF DIMENTIA. OTHER: PATIENT REPORTS HE JUST RELAXED HIS KNEE AND WAS NOT DISCIPLINED TO DO HIS EX'S LAST WEEK. - Objective GAIT: THIS PATIENT AMBULATES INDEP'LY INTO PT TODAY WITH A FWW, DECREASED CADANCE AND A MILD LIMP ON THE LLE. NO LOB. PATIENT REQUIRES CUEING FOR SAFETY WITH GAIT WITH WALKER. HE IS EASILY DISTRACTED AND DOES NOT USE THE WALKER SAFELY. HE PICKED THE WALKER UP COMPLETELY OFF THE FLOOR AT TIMES. HE TENDS TO MOVE IMPULSEVLY AND NEEDS CLOSE SUPERVISION FOR SAFETY. WOMAC score: 66/96. TU.35 SEC. Girth L Patella 45.5 cm. Girth 6 inch suprapatella 51 cm. L knee flexion AROM: 108 degress. L knee ext AROM: -12 DEG. L knee flex MMT; 3-/5. L knee ext MMT 3+/5. L hip MMT 4/5. R MMT: hip flex 4/5, knee flex 5/5, knee ext 5/5. Sensory deficit: DECREASED LIGHT TOUCH SENSATION DISTAL L ANTERIOR THIGH AND ANTERIOR L KNEE COMPARED TO RIGHT. Palpation: L LE INCISIONS LOOK GOOD WITHOUT ANY OPEN AREAS OR SIGNS OF INFECTION. TREATMENT: REVIEWED HEP: AP'S, HS'S, QS'S, SLR'S PER WRITTEN HOME INSTRUCTIONS THAT PATIENT BROUGHT WITH HIM. INSTRUCTED PATIENT AND CAREGIVER IN DOING HEP 3 TIMES A DAY 2X10 EA TOLERATED. PATIENT AND CAREGIVER COMMUNICATED A FAIR UNDERSTANDING OF HOME INSTRUCTIONS. OTHER: PATIENTS DAUGHTER VILMA PRESENT THROUGHOUT SESSION TODAY AND HELPFUL WITH PATIENT HISTORY. CAREGIVER INSTRUCTION GIVEN FOR PATIENT SAFETY WITH WALKER AND FOR ASSIST WITH HEP. PATIENT'S DAUGHTER AGREEABLE WITH HELPING PATIENT WITH HEP AND TRIES TO HELP PATIENT WITH SAFETY IN GENERAL. - Balance/Special Test Scores TUG Test Time Seconds: 23.35 30 Second Chair Rise Test Seconds: 6 WOMAC Total Score: 66 WOMAC Percentatge: 31.2500 - Goals Goal 1:: INCREASE L KNEE FUNCTION ROM TO -5 DEG EXT TO 120 DEG FLEX TO EASE GAIT AND ADL'S. Goal Time Frame: 6-8 Weeks Goal 2:: PATIENT WILL COMPLETE 10 STANDS IN 30 SECS TO DEMONSTRATE IMPROVED FUNCTIONAL STRENGTH Goal Time Frame: 6-8 Weeks Goal 3:: PATIENT WILL COMPLETE TUG WITH LEAST ASSISTIVE DEVICE IN < 15 SECS TO DEMONSTRATE IMPROVED GAIT STABILITY Goal Time Frame: 6-8 Weeks Goal 4:: PATIENT WILL AMBULATE 1200 FEET SAFELY WITH LEAST ASSISTIVE DEVICE WITH SUPERVISION TO IMPROVE ACTIVITY TOLERANCE Goal Time Frame: 6-8 Weeks Goal 5:: PATIENT WILL BE ABLE TO ASCEND AND DESCEND 3 STEPS RECIPRICALLY WITHOUT HR TO IMPROVE SAFETY GETTING IN AND OUT OF HOUSE. Goal Time Frame: 6-8 Weeks - Anticipated Interventions Patient/Client Instruction: Educate patient on: Condition, Plan of Care, Risk Factors For the Purpose of:: To improve self management Therapeutic Exercise to Include: Strength training, Endurance training, Balance training, Coordination, Flexibilty training, Gait and locomotor training, Neuromotor development For the Purpose of:: To decrease pain, To increase ROM, To improve muscle performance and motor function, To increase tolerance to activity/condition/position, To improve ability of physical actions for home/community/work/leisure, To improve gait and locomotor functions Thank you for the opportunity to evaluate your patient. For Medicare and Medicare HMO plans, please review the plan of care and approve it. It will need to be FAXED BACK to us at [phone] for Medicare purposes. For Medicare only, by signing this I certify the plan of care. Please let me know if there are questions or concerns regarding this plan of care. Physician Signature: Date:
--- NOTE | 2022-12-30 14:04 | HP.PTREVAL_ITS ---
Dr. Mynor Kirkpatrick MD, It has been my pleasure to treat SIDNEY POLLARD over the last 10 visits for L TKR 10/31/22. Please see the progress note below for an update on the physical therapy plan of care! Subjective: PATIENT REPORTS HE IS STILL HAVING A LOT OF PAIN AND HE STATES HE NEEDS THERAPY. PATIENT REPORTS SHE SAW DR. POPE FUR MIXER AND SHE TOLD HIM THE STIFFNESS WILL GO AWAY AND THEY WILL ORDER MORE PT. PATIENT REPORTS THE STRENGTH AND ROM IN HIS KNEE AND HIS STEADINESS HAS IMPROVED WITH THERAPY. PATIENT REPORTS HE MISSED THERAPY ALL LAST WEEK BECAUSE HE HAD PROSTATE SURGERY 2 WKS AGO. Objective/Function: PATIENT WAS SEEN TODAY FOR RE-ASSESSMENT OF PROGRESS TOWARD THE SET PT GOALS AND THE NEED FOR FURTHER PHYSICAL THERAPY VS READINESS FOR DISCHARGE. PATIENT HAS MADE SLOW PROGRESS WITH THERAPY IN TERMS OF GAIT, L KNEE ROM AND L KNEE STRENGTH SINCE STARTING PT AND HE IS A GOOD CANDIDATE TO CONTINUE PT BASED ON ROOM FOR FURHTER IMPROVEMENT. PATIENT IS AGREEABLE. UPON EXAM TODAY: WOMAC score: 56/96. TU.84 SEC. Girth L Patella 42.5 cm. Girth 6 inch suprapatella 48 cm. L knee flexion AROM: 128 degress. L knee ext AROM: -12 DEG. L knee flex MMT; 4-/5. L knee ext MMT 4-/5. L hip MMT 4/5. Sensory deficit: PATIENT REPORTS NUMBNESS AND DECREASED LIGHT TOUCH SENSATION OF ENTIRE L KNEE, PROX LEG AND DISTAL THIGH REGIONS COMPARED TO THE R AND HE REPORTS THE NUMBESS GOES INTO HIS GROIN AREA. PATIENT REPORTS HE HAS BEEN REFERRED TO NEUROLOGY FOR HIS GROIN NUMBNESS. Palpation: L LE INCISIONS LOOK GOOD WITHOUT ANY OPEN AREAS OR SIGNS OF INFECTION. Plan Plan: *GAIT BELT FOR SAFETY AND ESCORT PATIENT TO [facility] POST SESSION*. TKR REHAB FOR GAIT TRAINING, ROM, STRETCHING AND STRENGTHENING TO HELP MEET SET GOALS. Balance/Gait/Functional tests - Balance/Special Test Scores TUG Test Time Seconds: 16.84 Tug Test: <20 sec.=mostly independent 30 Second Chair Rise Test Seconds: 7 WOMAC Total Score: 56 WOMAC Percentage: 41.6700 Goals Goal 1:: INCREASE L KNEE FUNCTION ROM TO -5 DEG EXT TO 120 DEG FLEX TO EASE GAIT AND ADL'S. Goal Time Frame: 6-8 Weeks Goal Progress: Progressing Goal 2:: PATIENT WILL COMPLETE 10 STANDS IN 30 SECS TO DEMONSTRATE IMPROVED FUNCTIONAL STRENGTH Goal Time Frame: 6-8 Weeks Goal Progress: Progressing Goal 3:: PATIENT WILL COMPLETE TUG WITH LEAST ASSISTIVE DEVICE IN < 15 SECS TO DEMONSTRATE IMPROVED GAIT STABILITY Goal Time Frame: 6-8 Weeks Goal Progress: Progressing Goal 4:: PATIENT WILL AMBULATE 1200 FEET SAFELY WITH LEAST ASSISTIVE DEVICE WITH SUPERVISION TO IMPROVE ACTIVITY TOLERANCE Goal Time Frame: 6-8 Weeks Goal Progress: Goal Met Goal 5:: PATIENT WILL BE ABLE TO ASCEND AND DESCEND 3 STEPS RECIPRICALLY WITHOUT HR TO IMPROVE SAFETY GETTING IN AND OUT OF HOUSE. Goal Time Frame: 6-8 Weeks Anticipated Interventions Patient/Client Instruction: Educate patient on: Condition, Plan of Care, Risk Factors For the Purpose of:: To improve self management Therapeutic Exercise to Include: Strength training, Endurance training, Balance training, Coordination, Flexibilty training, Gait and locomotor training, Neuromotor development For the Purpose of:: To decrease pain, To increase ROM, To improve muscle performance and motor function, To increase tolerance to activit y/condition/position, To improve ability of physical actions for home/community/work/leisure, To improve gait and locomotor functions Please do not hesitate to contact me at [phone] by phone or if you have questions or concerns regarding this new plan of care! Sincerely, Rehana Marks, PT, Cert MDT
--- NOTE | 2023-04-04 12:28 | HP.PT.NRP ---
SIDNEY POLLARD was seen in my office for initial evaluation on 11/21/22. The following Plan of Care was established for this patient: Initial Frequency: 2-3x /Week Initial Duration: 4-6 Weeks Patient/Client Instruction: Educate patient on: Condition, Plan of Care, Risk Factors For the Purpose of:: To improve self management Therapeutic Exercise to Include: Strength training, Endurance training, Balance training, Coordination, Flexibilty training, Gait and locomotor training, Neuromotor development For the Purpose of:: To decrease pain, To increase ROM, To improve muscle performance and motor function, To increase tolerance to activity/condition/position, To improve ability of physical actions for home/community/work/leisure, To improve gait and locomotor functions This patient was last seen in our office . Pertinent comments regarding their Physical therapy will appear below: This patient has not returned to Physical Therapy and is appropriate to return to MD for further follow-up as needed. At this point I will be discontinuing this patient from physical therapy. I would be happy to see this patient again in the future if found appropriate by the physician. Thank you! Rehana Marks, PT, Cert MDT Balance/Gait/Functional tests - Balance/Special Test Scores TUG Test Time Seconds: 16.84 Tug Test: <20 sec.=mostly independent 30 Second Chair Rise Test Seconds: 7 WOMAC Total Score: 56 WOMAC Percentage: 41.6700
== END 2022-12-30 19:00 | disposition home or self-care (01) ==
LOC: PT 13:30
PROVIDERS: PCP Family Medicine; Referring Provider Orthopaedic Surgery; Visit Provider Orthopaedic Surgery
DX: Z47.1 Aftercare following joint replacement surgery (principal); Z96.652 Presence of left artificial knee joint
CPT/HCPCS: 97110; 97140; 97162; 97164; 97530

== ENCOUNTER 2023-01-27 16:40 | Emergency (ER) | payer MEDICARE, SELFPAY ==
[2023-01-27 16:41] VITALS: BP 140/89; PULSE 70; RESP 14; TEMP 36.4; O2SAT 97; BMI 30.7
--- NOTE | 2023-01-27 17:11 | EX.ED.DYSGE1 ---
HPI History of Present Illness Chief Complaint: Complaint Detail of Chief Complaint: Possible UTI Narrative Narrative: Patient presents thinking that he has either UTI or fungal infection. He states he has a strong odor to his urine. He reports finishing an antibiotic roughly 2 or 3 weeks ago but feels that he still has a strong odor to his urine. He does feel that he empties his bladder when he is able to urinate. He also is concerned that he may have a fungal or MRSA infection of his skin reporting that he has lumps and red spots. He states this has been ongoing for several weeks. [facility] Medical History (Updated 01/27/23 @ 18:[address] Nancy Templeton MD) Alcohol abuse Alcohol use disorder Anxiety Arthritis Back pain Depression Easy bruising Excessive bleeding PATRIA (generalized anxiety disorder) Gout History of pain when walking History of steroid therapy Hypertension Injury of head and neck MDD (major depressive disorder) Neurocognitive disorder Non-smoker Wears glasses Home Medications atenolol 25 mg tablet 25 mg PO DAILY 12/15/20 [History Last Taken Unknown] multivitamin 1 tab PO DAILY 10/18/22 [History Last Taken Unknown] aspirin 81 mg chewable tablet 81 mg PO BIDCM #60 tabs 11/02/22 [Rx Last Taken Unknown] sennosides 8.6 mg-docusate sodium 50 mg tablet (Stool Softener-Stimulant Laxative) 2 tab PO BID #30 tabs 11/02/22 [Rx Last Taken Unknown] tamsulosin 0.4 mg capsule 0.4 mg PO DAILY@1730 #0 caps 11/03/22 [Rx Last Taken Unknown] hydroxyzine HCl 10 mg tablet See Rx Instructions .Route .COMPLEX #60 tabs 11/17/22 [Rx Last Taken Unknown] fluoxetine 10 mg capsule (Prozac) 10 mg PO DAILY #30 caps 11/30/22 [Rx Last Taken Unknown] quetiapine 25 mg tablet (Seroquel) 25 mg PO QHS #30 tabs 11/30/22 [Rx Last Taken Unknown] ciprofloxacin HCl 500 mg tablet (Cipro) 500 mg PO BID #20 tabs 01/27/23 [Rx Last Taken Unknown] Allergy/AdvReac Type Severity Reaction Status Date / Time No Known Allergies Allergy Verified 01/27/23 16:44 Surgical History Hx of anterior cruciate ligament surgery S/P TURP Social History Smoking Status: Never smoker alcohol intake: current substance use type: former substance user and crack/cocaine what type of physical activity do you participate in: swimming frequency: 5-6 times per week ROS ROS ED Constitutional Constitutional ED: Denies chills or fever(s) Eyes Eyes: Denies change in vision or discharge from eye(s) ENT ENT ED: Denies discharge from eye(s), rhinorrhea or sore throat Cardiovascular Cardiovascular: Denies chest pain or palpitations Respiratory/Chest Respiratory/Chest: Denies cough or dyspnea Gastrointestinal Gastrointestinal: Reports abdominal pain; Denies diarrhea, nausea or vomiting Genitourinary Genitourinary ED: Reports other Details: Strong odor to urine. ; Denies difficulty urinating or dysuria Musculoskeletal Musculoskeletal: Denies back pain or extremity pain Integumentary Reports rash; Denies Abrasions Neurologic Neurologic: Denies headache(s) or weakness Allergic/Immunologic Allergic/Immunologic ED: Denies lip swelling or urticaria EXAM Physical Exam Const Vital Signs: 01/27/23 16:41 Temperature 97.5 F L Temperature Source Temporal Pulse Rate 70 Respiratory Rate 14 Blood Pressure 140/89 H Blood Pressure Mean 106 Pulse Ox 97 Oxygen Delivery Method Room Air Positive well nourished and well developed General Appearance ED: well developed HEENT Reports normocephalic and head/scalp atraumatic Eyes PERRL and EOMs intact bilaterally Neck supple Chest Wall inspection of chest normal and palpation of chest normal Resp normal respiratory effort and clear to auscultation bilaterally Cardio regular rate and regular rhythm GI normal to inspection, nondistended, normoactive bowel sounds Palpation: soft Back/Spine no CVA tenderness Extremity normal to inspection Neuro oriented x3 and no sensory deficits noted Sensorium / Orientation: alert Motor Exam: strength 5/5 throughout Psych Mood & Affect: anxious Skin Skin Narrative: Patient has some slightly raised red capillaries over his trunk that he was concerned about. There is no evidence of infection or abnormal skin findings at this time. MDM MDM MDM Narrative Medical decision making narrative: Labwork obtained to evaluate for leukocytosis, anemia, and electrolyte derangement. Urinalysis obtained to evaluate for infection/hematuria. Lab Data Labs: Laboratory Results - last 24 hr 0401/27/23 01/27/23 17:30 17:30 17:30 WBC 8.8 RBC 4.77 Hgb 13.8 Hct 42.2 MCV 88.5 MCH 28.9 MCHC 32.7 RDW Std Deviation 48.4 H RDW Coeff of Sarah 14.8 H Plt Count 296 MPV 8.7 Immature Gran % (Auto) 0.100 Neut % (Auto) 60.9 Lymph % (Auto) 25.8 [place] % (Auto) 9.0 Eos % (Auto) 3.6 Baso % (Auto) 0.6 Absolute Neuts (auto) 5.4 Absolute Lymphs (auto) 2.27 Nucleated RBC % 0 Sodium 141 Potassium 4.0 Chloride 111 H Carbon Dioxide 25.0 Anion Gap 5 BUN 18 Creatinine 1.01 Estim Creat Clear Calc 70.41 Est GFR (MDRD) Af Amer 93 Est GFR (MDRD) Non-Af 77 BUN/Creatinine Ratio 17.8 Glucose 92 Calcium 9.0 Urine Color Yellow Urine Clarity Cloudy Urine pH 5.0 Ur Specific [place] 1.020 Urine Protein 100 H Urine Glucose (UA) Normal Urine Ketones Negative Urine Occult Blood 250 H Urine Nitrite Negative Urine Bilirubin Negative Urine Urobilinogen Normal Ur Leukocyte Esterase 500 H Urine RBC 0 SEEN Urine WBC >100 SEEN Ur Squamous Epith Cells 0 SEEN Urine Bacteria 0 SEEN Urine Mucus 0 SEEN Treatment and Re-Evaluation :: CBC and chemistry studies unremarkable. Urinalysis reveals greater than 100 white cells with 500 leukocyte esterase. 0 bacteria are noted. Last urine culture that I can see is from October that revealed no growth. With patient not having significant bacteria I will cover him with 10 days of Cipro for possible mild prostatitis. Urine culture today has been sent. He will follow-up with Dr. Way who he has seen in the past. Discharge Plan Triage Chief Complaint: Complaint ED Provider: Nancy Templeton Dx/Rx/DC Orders Clinical Impression: UTI (urinary tract infection) Instructions: ED Urinary Tract Infections in Men Prescriptions: New ciprofloxacin HCl [Cipro] 500 mg tablet 500 mg PO BID Qty: 20 0RF No Action fluoxetine [Prozac] 10 mg capsule 10 mg PO DAILY Qty: 30 2RF quetiapine [Seroquel] 25 mg tablet 25 mg PO QHS Qty: 30 2RF atenolol 25 MG tablet 25 mg PO DAILY Rx Instructions: PT UNSURE OF CORRECT DOSE multivitamin Tablet 1 tab PO DAILY sennosides-docusate sodium [Stool Softener-Stimulant Laxat] 8.6-50 mg Tablet 2 tab PO BID Qty: 30 0RF aspirin 81 mg Tablet,Chewable 81 mg PO BIDCM Qty: 60 0RF tamsulosin 0.4 mg Capsule 0.4 mg PO DAILY@1730 Qty: 0 0RF hydroxyzine HCl 10 mg tablet See Rx Instructions .ROUTE .COMPLEX Qty: 60 1RF Dose Instruction: TAKE 1 TABLET BY MOUTH TWICE A DAY NEEDED FOR ANXIETY Rx Instructions: TAKE 1 TABLET BY MOUTH TWICE A DAY NEEDED FOR ANXIETY Primary Care Provider: Michael Trimble Referrals: Bernardo Way MD [Med Staff - Active Staff] - 1-2 Weeks Michael Trimble MD [Primary Care Provider] - Disposition Disposition: Home, Self Care
[2023-01-27 17:44] LABS: Bacteria 0 SEEN /hpf (None Seen); Mucous, Urine 0 SEEN /hpf (<or=2+); Red Blood Cells-Urine 0 SEEN /hpf (0-5); Squamous Epithelial Cells - UA 0 SEEN /hpf (0-5)
[2023-01-27 17:58] LABS: Color, Urine Yellow (Yellow); Glucose, Dipstick Normal (Normal); Ketone-Dipstick Negative (Negative); Leukocyte Esterase-Dipstick 500 /ul (Negative); Nitrite-Dipstick Negative (Negative); Occult Blood-Urine 250 /ul (Negative); Protein-Dipstick 100 mg/dl (Negative); Urine Bilirubin Dipstick Negative (Negative); Urine Clarity Cloudy (Clear); Urine Urobilinogen Normal (Normal)
[2023-01-27 18:03] LABS: Absolute Lymphocyte Count 2.27 X10^3/uL (0.83-4.51); Absolute Neutrophil Count 5.4 X10^3/uL (2.0-7.7); Basophil# 0.05 X10^3/uL; Basophil% 0.6 % (0-1); Eosinophil# 0.32 X10^3/uL; Eosinophils% 3.6 % (0-5); Hematocrit 42.2 % (40-54); Hemoglobin 13.8 g/dL (13.0-16.5); Lymphocyte # 2.27 X10^3/ul (0.83-4.51); Lymphocyte % 25.8 % (19-41); Mean Corp Hgb Conc 32.7 g/dL (32-36); Mean Corpuscular Hgb 28.9 pg (27.0-32.0); Mean Corpuscular Volume 88.5 fL (80-94); Mean Platelet Vol. 8.7 fl (6.2-12.0); Monocyte# 0.79 X10^3/uL; NRBC Flagged by Analyzer 0 % (0-5); Neutrophil # 5.36 X10^3/uL (2.7-7.7); Neutrophil % 60.9 % (47-70); Platelet Count 296 K/mm3 (150-450); RBC Distribution Width CV 14.8 % (11.6-14.6); RBC Distribution Width SD 48.4 fl (35.1-43.9); Red Blood Count 4.77 M/mm3 (4.6-6.2); White Blood Count 8.8 K/mm3 (4.4-11.0)
[2023-01-27 18:06] LABS: White Blood Cells >100 SEEN /hpf (0-5)
[2023-01-27 18:11] LABS: Anion Gap 5 (5-15); BUN 18 mg/dL (7-18); BUN/Creat Ratio 17.8 RATIO (10-20); Chloride 111 mmol/L (98-107); Creatinine, Serum 1.01 mg/dL (0.70-1.30); EST Glomerular Filtration Rate 77 mL/min (>60); Est Glom Filt Rate - Afr Amer 93 mL/min (>60); Estimated Creatinine Clearance 70.41 ml/min; Glucose 92 mg/dL (74-106); Sodium Level 141 mmol/L (136-145)
[2023-01-27] MEDS: Ciprofloxacin 500 MG Tablet PO (18:47)
== END 2023-01-27 18:59 | disposition home or self-care (01) ==
PROVIDERS: Emergency Provider Emergency Medicine; PCP Family Medicine; Visit Provider Emergency Medicine
DX: N39.0 Urinary tract infection, site not specified (principal); I10 Essential (primary) hypertension
CPT/HCPCS: 80048; 81001; 85025; 87086; 87088; 99282

== ENCOUNTER 2025-01-19 14:35 | Emergency (ER) | payer MEDICARE, SELFPAY ==
[2025-01-19 14:35] VITALS: BP 139/75; PULSE 67; RESP 16; TEMP 35.8
[2025-01-19 14:53] VITALS: BP 156/76; PULSE 61; RESP 20; TEMP 35.9; O2SAT 100
--- NOTE | 2025-01-19 15:11 | EX.ED.DYSGE1 ---
HPI <CLEMENT Henson - Last Filed: 01/19/25 19:51> History of Present Illness Chief Complaint: Abd Pain Narrative Narrative: Patient presenting today with his daughter due to concerns for abdominal pain. Patient is unable to tell me exactly where the pain is localized but points all over his abdomen. Patient reports that he has had abdominal pain for over a year and has been constipated for over a year. Patient reports concerns for bowel obstruction. He denies any history of bowel obstruction or previous abdominal surgery. He did have a bowel movement this morning but was incontinent of both bowel and bladder. He does have a history of bladder incontinence and reports that he was trying to make it to the bathroom to have a bowel movement but did not make it in time. He lives in an assisted living facility. He denies fevers, chills, nausea, vomiting, and urinary symptoms. He has a PMH of anxiety, depression, and neurocognitive disorder. PFSH <CLEMENT Henson - Last Filed: 01/19/25 19:51> PFSH Medical History Neurocognitive disorder Wears glasses Depression Anxiety History of steroid therapy Back pain Injury of head and neck Easy bruising Excessive bleeding Non-smoker History of pain when walking Hypertension MDD (major depressive disorder) Alcohol use disorder PATRIA (generalized anxiety disorder) Gout Arthritis Alcohol abuse Home Medications ?Medication ?Instructions ?Recorded ?Last Taken ?Type ciprofloxacin HCl 500 mg tablet 500 mg PO BID #20 tabs 01/27/23 Unknown Rx (Cipro) Allergy/AdvReac Type Severity Reaction Status Date / Time No Known Allergies Allergy Verified 01/27/23 16:44 Surgical History S/P TURP Hx of anterior cruciate ligament surgery Social History Smoking Status: Never smoker alcohol intake: current substance use type: former substance user and crack/cocaine what type of physical activity do you participate in: swimming frequency: 5-6 times per week ROS <CLEMENT Henson - Last Filed: 01/19/25 19:51> ROS ED Constitutional Constitutional ED: Denies chills or fever(s) Cardiovascular Cardiovascular: Denies chest pain Respiratory/Chest Respiratory/Chest: Denies dyspnea Gastrointestinal Gastrointestinal: Reports abdominal pain and constipation; Denies diarrhea, nausea or vomiting Genitourinary Genitourinary ED: Denies dysuria, hematuria or urinary urgency Musculoskeletal Musculoskeletal: Denies arthralgias or myalgias Integumentary Denies rash Neurologic Neurologic: Denies weakness EXAM <CLEMENT Henson - Last Filed: 01/19/25 19:51> Physical Exam Const Vital Signs: 01/19/25 14:35 01/19/25 14:53 01/19/25 16:31 Temperature 96.5 F L 96.7 F L Temperature Source Temporal Temporal Pulse Rate 67 61 60 Respiratory Rate 16 20 H 20 H Blood Pressure 139/75 H 156/76 H 152/68 H Blood Pressure Mean 96 102 96 Pulse Ox 100 100 Oxygen Delivery Method Room Air 01/19/25 18:27 Temperature 98.4 F Temperature Source Pulse Rate 60 Respiratory Rate 20 H Blood Pressure 152/68 H Blood Pressure Mean 96 Pulse Ox 100 Oxygen Delivery Method Positive well nourished, well developed and no apparent distress General Appearance ED: well developed HEENT Reports normocephalic and head/scalp atraumatic Mouth ED: Yes moist mucous membranes normal Eyes PERRL and EOMs intact bilaterally Neck full ROM and supple Chest Wall inspection of chest normal Resp normal respiratory effort and clear to auscultation bilaterally Cardio regular rate and regular rhythm GI soft to palpation, non-distended and no masses GI Narrative: Minimal generalized tenderness to palpation, no rigidity or guarding Back/Spine normal ROM and normal to inspection Extremity normal to inspection and full ROM Neuro oriented x3, CN's II-XII intact bilaterally, moves all extremities, no focal motor deficits and no sensory deficits noted Sensorium / Orientation: awake and alert Psych mental status grossly normal and thought process normal Skin no rashes or lesions noted and no wounds <Dr. Genaro Cárdenas DO - Last Filed: 01/19/25 23:12> Physical Exam Const Vital Signs: 01/19/25 14:35 01/19/25 14:53 01/19/25 16:31 Temperature 96.5 F L 96.7 F L Temperature Source Temporal Temporal Pulse Rate 67 61 60 Respiratory Rate 16 20 H 20 H Blood Pressure 139/75 H 156/76 H 152/68 H Blood Pressure Mean 96 102 96 Pulse Ox 100 100 Oxygen Delivery Method Room Air 01/19/25 18:27 Temperature 98.4 F Temperature Source Pulse Rate 60 Respiratory Rate 20 H Blood Pressure 152/68 H Blood Pressure Mean 96 Pulse Ox 100 Oxygen Delivery Method MDM <CLEMENT Henson - Last Filed: 01/19/25 19:51> [facility] Narrative Medical decision making narrative: Patient presenting with generalized abdominal pain he has had for over a year as well as constipation. He is here with his daughter. They report concerns for bowel obstruction due to his constipation, he did have a bowel movement this morning although he was incontinent of bowels this morning. He reports he was try to get to the bathroom when he had his episode of incontinence. Patient offers little history on exam, daughter reports that this is typical for him and he does not usually answer questions very well. The nurse did consult social work because the daughter reported that he may not be getting an appropriate level of care at his assisted living facility, she was consulted to offer additional resources which were provided. Labs were obtained, his CBC is unremarkable, CMP shows a BUN of 23, otherwise is unremarkable. UA is negative for UTI. CT scan of the abdomen and pelvis shows a large right inguinal hernia containing bowel loops without bowel obstruction. No evidence for strangulated/incarcerated hernia. He was medicated here with IV fluids, Toradol, and Zofran. On reexamination he is doing well. I did refer him to general surgery for the hernia. Plan was discussed with both him and his daughter, they are comfortable with this plan and he will be discharged home in stable condition. Lab Data Attestation: I reviewed the patient's lab results. Labs: Laboratory Results - last 24 hr 01/19/25 01/19/25 15:30 16:24 WBC 6.7 RBC 5.28 Hgb 15.6 Hct 46.0 MCV 87.1 MCH 29.5 MCHC 33.9 RDW Std Deviation 45.2 H RDW Coeff of Sarah 14.1 Plt Count 223 MPV 7.7 Immature Gran % (Auto) 0.300 Neut % (Auto) 68.0 Lymph % (Auto) 20.1 [place] % (Auto) 8.7 Eos % (Auto) 2.3 Baso % (Auto) 0.6 Absolute Neuts (auto) 4.5 Absolute Lymphs (auto) 1.34 Nucleated RBC % 0 Sodium 137 Potassium 4.4 Chloride 103 Carbon Dioxide 22.5 Anion Gap 12 BUN 23 H Creatinine 1.10 Estim Creat Clear Calc 62.75 Est GFR (MDRD) Non-Af 70 BUN/Creatinine Ratio 21.0 H Glucose 91 Calcium 9.3 Total Bilirubin 0.48 AST 30 ALT 45 Alkaline Phosphatase 86 Total Protein 7.3 Albumin 4.4 Globulin 2.9 Albumin/Globulin Ratio 1.5 Lipase 43 Urine Color Yellow Urine Clarity Clear Urine pH 5.0 Ur Specific [place] 1.010 Urine Protein 15 H Urine Glucose (UA) Normal Urine Ketones Negative Urine Occult Blood 10 H Urine Nitrite Negative Urine Bilirubin Negative Urine Urobilinogen Normal Ur Leukocyte Esterase 25 H Urine RBC 0 SEEN Urine WBC 0-5 SEEN Ur Squamous Epith Cells 0-5 SEEN Urine Bacteria 0 SEEN Urine Mucus 0 SEEN Radiography Diagnostic Testing: Clinical Impression(s) from Imaging Studies Abdomen/Pelvis CTA 01/19/25 15:44 IMPRESSION: Hiatal hernia Large right inguinal hernia containing bowel loops without significant bowel loop pathology. Small fat containing left inguinal hernia. No significant atherosclerotic plaque or significant arterial pathology Reading Location: [facility] <Dr. Genaro Cárdenas, DO - Last Filed: 01/19/25 23:12> [facility] Narrative Medical decision making narrative: Patient presenting with generalized abdominal pain he has had for over a year as well as constipation. He is here with his daughter. They report concerns for bowel obstruction due to his constipation, he did have a bowel movement this morning although he was incontinent of bowels this morning. He reports he was try to get to the bathroom when he had his episode of incontinence. Patient offers little history on exam, daughter reports that this is typical for him and he does not usually answer questions very well. The nurse did consult social work because the daughter reported that he may not be getting an appropriate level of care at his assisted living facility, she was consulted to offer additional resources which were provided. Labs were obtained, his CBC is unremarkable, CMP shows a BUN of 23, otherwise is unremarkable. UA is negative for UTI. CT scan of the abdomen and pelvis shows a large right inguinal hernia containing bowel loops without bowel obstruction. No evidence for strangulated/incarcerated hernia. He was medicated here with IV fluids, Toradol, and Zofran. On reexamination he is doing well. I did refer him to general surgery for the hernia. Plan was discussed with both him and his daughter, they are comfortable with this plan and he will be discharged home in stable condition. Attending note: I have personally performed a face to face assessment of the patient and have reviewed the CLARA note. I personally made/approved the management plan and take responsibility for the patient management. I performed a substantive portion of the visit including all aspects of the following. My chirinos findings include: Reports on and off abdominal pain for 2 years no PCP denies abdominal surgeries. Pain is worse however cannot tell me when. States constipation however had bowel movement today. Patient shortness answer. States due to discomfort did not want to talk much. Exam mild tenderness midline abdomen epigastric down lower there is no pulsatile mass. No guarding or rebound. Vague symptoms abdominal labs with CT angiogram to rule out any aortic pathology. Labs are all stable. Urine negative for infection. CT angiogram normal aorta however noted right inguinal hernia with bowels there is no clinical obstruction. Reassured on findings. Social work did evaluate the patient, daughter present, patient lives with daughter confirming this is his normal behavior with short comments. She feels comfortable with him at home. He is referred to surgery for outpatient evaluation for his nonobstructive inguinal hernia. Lab Data Labs: Laboratory Results - last 24 hr 01/19/25 01/19/25 15:30 16:24 WBC 6.7 RBC 5.28 Hgb 15.6 Hct 46.0 MCV 87.1 MCH 29.5 MCHC 33.9 RDW Std Deviation 45.2 H RDW Coeff of Sarah 14.1 Plt Count 223 MPV 7.7 Immature Gran % (Auto) 0.300 Neut % (Auto) 68.0 Lymph % (Auto) 20.1 [place] % (Auto) 8.7 Eos % (Auto) 2.3 Baso % (Auto) 0.6 Absolute Neuts (auto) 4.5 Absolute Lymphs (auto) 1.34 Nucleated RBC % 0 Sodium 137 Potassium 4.4 Chloride 103 Carbon Dioxide 22.5 Anion Gap 12 BUN 23 H Creatinine 1.10 Estim Creat Clear Calc 62.75 Est GFR (MDRD) Non-Af 70 BUN/Creatinine Ratio 21.0 H Glucose 91 Calcium 9.3 Total Bilirubin 0.48 AST 30 ALT 45 Alkaline Phosphatase 86 Total Protein 7.3 Albumin 4.4 Globulin 2.9 Albumin/Globulin Ratio 1.5 Lipase 43 Urine Color Yellow Urine Clarity Clear Urine pH 5.0 Ur Specific [place] 1.010 Urine Protein 15 H Urine Glucose (UA) Normal Urine Ketones Negative Urine Occult Blood 10 H Urine Nitrite Negative Urine Bilirubin Negative Urine Urobilinogen Normal Ur Leukocyte Esterase 25 H Urine RBC 0 SEEN Urine WBC 0-5 SEEN Ur Squamous Epith Cells 0-5 SEEN Urine Bacteria 0 SEEN Urine Mucus 0 SEEN Radiography Diagnostic Testing: Clinical Impression(s) from Imaging Studies Abdomen/Pelvis CTA 01/19/25 15:44 IMPRESSION: Hiatal hernia Large right inguinal hernia containing bowel loops without significant bowel loop pathology. Small fat containing left inguinal hernia. No significant atherosclerotic plaque or significant arterial pathology Reading Location: [facility] Discharge Plan Triage Chief Complaint: Abd Pain ED Midlevel Provider: Renea Sam ED Provider: Genaro Cárdenas Dx/Rx/DC Orders Clinical Impression: Constipation, Abdominal pain, Inguinal hernia, right Instructions: Abdominal Pain, ED Hernia (Adult) Prescriptions: No Action ciprofloxacin HCl [Cipro] 500 mg tablet 500 mg PO BID Qty: 20 0RF Primary Care Provider: Michael Trimble Referrals: Kedar Wright MD [Med Staff - Active Staff] - 1 Week Michael Trimble MD [Primary Care Provider] - Activity Restrictions/Additional Instructions: Follow-up with general surgery, return for any worsening symptoms. Print Language: Guyanese Disposition Disposition: Home, Self Care Discharge Date/Time: 01/19/25 18:29
[2025-01-19] MEDS: Ondansetron 4 MG/2 ML Vial IV (15:21)
[2025-01-19] MEDS: Ketorolac 15 MG/ML Vial IV (15:21)
[2025-01-19] MEDS: 0.9% Normal Saline (1000mL) 1,000 ML 999 ML IV (15:22)
[2025-01-19 15:25] VITALS: BMI 25.4
[2025-01-19 15:40] LABS: Absolute Lymphocyte Count 1.34 X10^3/uL (0.83-4.51); Absolute Neutrophil Count 4.5 X10^3/uL (2.0-7.7); Basophil# 0.04 X10^3/uL; Basophil% 0.6 % (0-1); Eosinophil# 0.15 X10^3/uL; Eosinophils% 2.3 % (0-5); Hemoglobin 15.6 g/dL (13.0-16.5); Lymphocyte # 1.34 X10^3/ul (0.83-4.51); Lymphocyte % 20.1 % (19-41); Mean Corp Hgb Conc 33.9 g/dL (32-36); Mean Corpuscular Hgb 29.5 pg (27.0-32.0); Mean Corpuscular Volume 87.1 fL (80-94); Mean Platelet Vol. 7.7 fl (6.2-12.0); Monocyte# 0.58 X10^3/uL; Monocyte% 8.7 % (0-10); NRBC Flagged by Analyzer 0 % (0-5); Neutrophil # 4.53 X10^3/uL (2.7-7.7); Platelet Count 223 K/mm3 (150-450); RBC Distribution Width CV 14.1 % (11.6-14.6); RBC Distribution Width SD 45.2 fl (35.1-43.9); Red Blood Count 5.28 M/mm3 (4.6-6.2); White Blood Count 6.7 K/mm3 (4.4-11.0)
--- NOTE | 2025-01-19 15:44 | CT_ITS ---
PROCEDURE: CTA ABD/PELVIS W/WO CONTRAST 01/19/2025 REASON FOR EXAM: ABD PAIN TECHNIQUE: CTA imaging of the abdomen and pelvis with intravenous contrast. Coronal and Sagittal reconstruction series were provided. 3D, 3D post processing, 3D reconstructions, Maximum intensity projection (MIPs) Volume rendering and Shaded surface rendering was provided. CONTRAST: Isovue 370 VOLUME: 99mL One or more dose reduction techniques were used (e.g., Automated exposure control, adjustment of the mA and/or kV according to patient size, use of iterative reconstruction technique). RADIATION DOSE SUMMARY: CTDlvol: 25.95 mGy DLP: 949.11 mGycm FINDINGS: Aorta: Unremarkable Iliac Arteries: Normal caliber and unremarkable Celiac: Normal. No plaque. SMA: Normal. No plaque. DEBRA : No plaque. Normal contrast opacification. Right Renal: Normal Left Renal: Normal Other Findings: Hiatal hernia containing portion of stomach and mesenteric fat. Small fat containing left inguinal hernia. Large right inguinal hernia containing several bowel loops without obvious small bowel pathology. CT/CTA Abd/Pelvis W/WO Contrast IMPRESSION: Hiatal hernia Large right inguinal hernia containing bowel loops without significant bowel lo op pathology. Small fat containing left inguinal hernia. No significant atherosclerotic plaque or significant arterial pathology Reading Location: [facility]
--- NOTE | 2025-01-19 15:58 | NURSING ---
pt with minimal eye contant and short repetitive answers. daughter admits that pt with several psych hosptializations and wondering if this isint something of the sort. pt with conflicting reports of problems. stated, cant go. constipated bad. when pointed out that daughter had said that had large incont. of stool all over bed then stated and crosses arms, i dont want to talk about it and refusing to answer. did report eating lunch yest after saying i cant swallow when told that was going to receive nausea medicine and pain medicine for stomach pain. pt rated pain a 10/10. bizarre disconnected behavior during bedside eval. daughter to run home till 'tests' back.
[2025-01-19 16:13] LABS: ALB/GLOB Ratio 1.5 RATIO (0.9-2.4); AST(SGOT) 30 U/L (<=37); Alanine Aminotransfer ALT/SGPT 45 U/L (<=46); Albumin, Serum 4.4 g/dL (3.4-4.8); Alkaline Phosphatase 86 U/L (40-129); Anion Gap 12 (5-15); BUN 23 mg/dL (4-19); Calcium,Total 9.3 mg/dL (7.6-11.0); Carbon Dioxide 22.5 mmol/L (21.0-32.0); Chloride 103 mmol/L (98-108); EST Glomerular Filtration Rate 70 (>60); Estimated Creatinine Clearance 62.75 ml/min (50-250); Globulin 2.9 g/dL (2.2-4.2); Glucose 91 mg/dL (70-99); Lipase 43 U/L (13-75); Potassium 4.4 mmol/L (3.3-5.1); Protein, Total 7.3 g/dL (5.9-8.4); Sodium Level 137 mmol/L (133-145); Total Bilirubin 0.48 mg/dL (0.00-1.30)
--- NOTE | 2025-01-19 16:15 | CM.ED ---
Social Work Date of referral: 01/19/2025 Reason for referral: Assistance with discharge planning Referred by: ED physician Patient provided consent for social work visit. Patient alone at the time of visit. Horticulture Superintendent introduced herself and started to ask patient questions and at first, patient wouldn't talk, appeared to be in a lot of discomfort, was holding his abdomen and stated he couldn't talk. general lithographic worker asked patient if it would be ok for outreach and education social worker to call patient's daughter, at first, patient requested the phone call to be in patient's room which outreach and education social worker agreed to however patient's daughter didn't answer the phone so outreach and education social worker had to leave a message. (Arabella Razo; [phone]). Patient then stated he lives at [facility] in [place] and then stated he couldn't talk again for the same reasons. Patient provided permission for outreach and education social worker to talk with his daughter Arabella should she return call to outreach and education social worker. No other information at this time. Patient just observed laying in bed trying to seek comfort with his discomfort. Nancy Escobar, DRAW FURNACE TENDER, MANAGER SUPPORT SERVICES
[2025-01-19 16:31] VITALS: BP 152/68; PULSE 60; RESP 20; O2SAT 100
[2025-01-19 16:34] LABS: Bacteria 0 SEEN /hpf (None Seen); Mucous, Urine 0 SEEN /hpf (<or=2+); Red Blood Cells-Urine 0 SEEN /hpf (0-5)
--- NOTE | 2025-01-19 16:45 | CM.ED ---
Social Work: Patient's daughter, Arabella Razo, returned call to social scientist. Ms. Razo stated patient has been living at [facility] ([facility]) for the past 2 months and prior to that, had been living at [facility] where patient had been for 2 years. Ms. Razo stated she wasn't raised by patient due to parental divorce however stated for as long as she's ever known patient, patient has been weird and different. Ms. Razo stated patient is not able to afford a higher level of care so the [facility] patient is at now has agreed to provide verbal prompting and reminders to patient for activities of daily living including personal hygiene, dressing, and toileting. Ms. Razo stated when patient first transitioned from [facility] to current [facility], patient began experiencing urine and fecal incontinence which Ms. Razo believes was related to transition in living arrangement as well as change in overall environment and routine. Ms. Razo stated patient has experienced this each time he has spent the night with her, again due to nerves. Ms. Razo's stated patient slept in her basement last night and believes that patient just didn't want to get up to use the bathroom or felt like he couldn't get there in time and didn't want to make a mess in her bathroom. Ms. Razo reported she normally see's patient at his JO once a month however has routine calls with the nursing staff at the [facility] to check on patient and to make sure patient is doing ok. Ms. Razo also stated patient was complaining his stomach was hurting yesterday when she picked him up and also stated patient had pizza for lunch at the [facility] before she picked him up to spend the night with her. Ms. Razo stated anytime patient has spent the night with her or come over to her house, patient refuses to eat or drink, she believes because patient is afraid he will have an accident. Ms. Razo described patient as a very routine oriented person, described patient as always having been lazy with self-care to the point to where patient would hardly ever shower and instead would go swimming in a pool to get everything off. Ms. Razo described all presenting behavior/issues as baseline. Ms. Razo stated her mother also has a lot of similar characteristics. Ms. Razo stated her whole life with patient she's had to be the adult to patient. Ms. Razo believes patient could possibly be on the spectrum but stated patient has never been evaluated. Ms. Razo stated patient moved to this area in 2019, at which point Ms. Razo began having increased contact with patient. Ms. Razo stated that patient began to struggle more in 2021, especially with increased anxiety and depression. Ms. Razo stated that during that time, patient had multiple psychiatric placements. Ms. Razo denied any current concerns that would be described out of the ordinary for patient. Ms. Razo stated that in general, patient doesn't talk to her or share information with her so she has no idea when patient soiled himself on this date to know how long he had gone without cleaning himself up. Ms. Razo asked social scientist not to call the JO because she is afraid they may change the current level of care and make patient move out. Ms. Razo plans to take patient back to [facility] after patient is medically cleared and will monitor closely afterwards. Nancy Escobar, RESTAURANT AREA MANAGER, [employer] CONSULTANT
[2025-01-19 16:51] LABS: Color, Urine Yellow (Yellow); Glucose, Dipstick Normal (Normal); Ketone-Dipstick Negative (Negative); Leukocyte Esterase-Dipstick 25 /ul (Negative); Nitrite-Dipstick Negative (Negative); Occult Blood-Urine 10 /ul (Negative); Protein-Dipstick 15 mg/dl (Negative); Urine Bilirubin Dipstick Negative (Negative); Urine Clarity Clear (Clear); Urine Urobilinogen Normal (Normal)
[2025-01-19 17:10] LABS: Squamous Epithelial Cells - UA 0-5 SEEN /hpf (0-5); White Blood Cells 0-5 SEEN /hpf (0-5)
[2025-01-19 18:27] VITALS: BP 152/68; PULSE 60; RESP 20; TEMP 36.9; O2SAT 100
== END 2025-01-19 18:29 | disposition home or self-care (01) ==
PROVIDERS: Physician Assistant; Emergency Provider Emergency Medicine; PCP Family Medicine; Visit Provider Emergency Medicine
DX: K59.00 Constipation, unspecified (principal); K40.20 Bilateral inguinal hernia, without obstruction or gangrene, not specified as recurrent; K44.9 Diaphragmatic hernia without obstruction or gangrene; R32 Unspecified urinary incontinence; R41.9 Unspecified symptoms and signs involving cognitive functions and awareness; F32.A Depression, unspecified; F41.1 Generalized anxiety disorder; Z87.898 Personal history of other specified conditions
CPT/HCPCS: 74174; 80053; 81001; 83690; 85025; 96361; 96374; 96375; 99285; P9612; Q9967; A4216; J2405